=== PATIENT | female | born 1970 | race Caucasian/White ===

== ENCOUNTER 2022-12-24 09:23 | Outpatient (CLI) | payer OTHER, SELFPAY ==
--- NOTE | 2022-12-24 09:45 | CRLHL7_ITS ---
For Patients: As a result of the Cures Act, medical imaging exams and procedure reports are released immediately into your electronic medical record. You may view this report before your referring provider. If you have questions, please contact your health care provider. BILATERAL SCREENING MAMMOGRAM WITH COMPUTER-AIDED DETECTION AND TOMOSYNTHESIS TECHNIQUE: CC and MLO views were obtained. These mammographic images have been obtained using full-field digital technique. These mammographic images were interpreted with the benefit of computer-aided detection. Breast Tomosynthesis was used in this interpretation. COMPARISON FILM: 06/12/21, 07/15/19, 06/04/18. FINDINGS: There are scattered areas of fibroglandular density IMPRESSION: There is no radiographic evidence for malignancy. ASSESSMENT: BI-RADS Category 1: Negative RECOMMENDATION: Routine screening mammogram in 1 year. A lay language report of this examination will be provided to the patient. Jake Harper M.D. Diagnostic Radiologist [email or web address] / be/Dictated by: Jake Harper MD @ 12/24/2022 10:25:00 AM (Electronically Signed)
== END 2022-12-24 09:24 | disposition home or self-care (01) ==
LOC: MAMMO 09:24
PROVIDERS: PCP Family Medicine; Visit Provider Physician Assistant
DX: Z12.31 Encounter for screening mammogram for malignant neoplasm of breast (principal)
CPT/HCPCS: 77063; 77067

== ENCOUNTER 2023-01-24 07:37 | Outpatient (CLI) | payer OTHER, SELFPAY | END 2023-01-24 07:38 | disposition home or self-care (01) | PROVIDERS: PCP Family Medicine; Visit Provider Physician Assistant | DX: Z01.419 Encounter for gynecological examination (general) (routine) without abnormal findings (principal); R74.8 Abnormal levels of other serum enzymes; Z13.6 Encounter for screening for cardiovascular disorders; Z13.1 Encounter for screening for diabetes mellitus; Z13.29 Encounter for screening for other suspected endocrine disorder | CPT/HCPCS: 80061; 80076; 82947; 84443 ==

== ENCOUNTER 2023-01-29 16:14 | Outpatient (CLI) | payer OTHER, SELFPAY ==
--- NOTE | 2023-01-29 17:00 | CRLHL7_ITS ---
For Patients: As a result of the Century Cures Act, medical imaging exams and procedure reports are released immediately into your electronic medical record. You may view this report before your referring provider. If you have questions, please contact your health care provider. INDICATION: Elevated LFTs TECHNIQUE: Ultrasound abdomen limited. Sonographic images of the right upper quadrant were obtained using mathis-scale and color Doppler images. COMPARISON: None FINDINGS: Liver: Normal in size diffuse fatty infiltration. No masses. No intrahepatic biliary dilatation. Gallbladder: No stones or sludge. Normal wall thickness. No pericholecystic fluid. Common bile duct: 3.6 mm. Pancreas: Normal. The tail was not visualized. Right kidney: 8.7 cm. Normal echotexture and cortex. No masses, stones, or hydronephrosis. Vasculature: Proximal abdominal aorta and IVC are normal. IMPRESSION: Diffuse fatty infiltration of liver. Dictated by Jake Pearl MD @ 01/30/2023 11:12:43 AM (Electronically Signed)
== END 2023-01-29 16:15 | disposition home or self-care (01) ==
PROVIDERS: PCP Family Medicine; Visit Provider Physician Assistant
DX: R74.8 Abnormal levels of other serum enzymes (principal); K76.0 Fatty (change of) liver, not elsewhere classified
CPT/HCPCS: 76705

== ENCOUNTER 2023-02-15 19:38 | Outpatient (CLI) | payer OTHER, SELFPAY ==
--- NOTE | 2023-02-26 12:31 | W.PM.SLEEP ---
Sleep Study Details Details Interpreting Provider: Jody Date of Sleep Study: 02/15/23 Sleep Study Details: STUDY TYPE:? Home unattended ? BMI:? 34.5 ORDERING PROVIDER:? Ellie INDICATION:? Concerns about sleep apnea ? SLEEP SUMMARY:? 484.5 minutes monitor RESPIRATORY SUMMARY:? AHI 7.7, supine 12.4, left lateral 2.5, right lateral 5.9 1.3% of study oxygen below 90% Low oxygen 82% Snoring 1.5% PERIODIC LIMB MOVEMENTS OF SLEEP:? Not recorded during home study CARDIAC:? Range 46-93, mean 61.9 IMPRESSION:? Mild obstructive sleep apnea with supine position dependency RECOMMENDATION: If the patient is symptomatic treatment could consist of either AutoSet CPAP, dental appliance and/or airway expansion surgery.
== END 2023-02-15 19:39 | disposition home or self-care (01) ==
LOC: SLEEP 02-16 22:52
PROVIDERS: PCP Family Medicine; Visit Provider Physician Assistant
DX: G47.33 Obstructive sleep apnea (adult) (pediatric) (principal)
CPT/HCPCS: 95806

== ENCOUNTER 2023-04-08 07:09 | Outpatient (CLI) | payer OTHER, SELFPAY ==
--- NOTE | 2023-04-08 06:31 | W.ANESCHARGE ---
Anesthesia Charges Start Date/Time Anesthesia Start Date: 04/08/23 Anesthesia Start Time: 08:00 Stop Date/Time Anesthesia Stop Date: 04/08/23 Anesthesia Stop Time: 08:47
--- NOTE | 2023-04-08 06:31 | PM.ANHP ---
HPI - Pre-Anesthesia History of Present Illness Time Seen by Provider: 07:53 Date Seen: 04/08/23 Date of service: 04/08/23 Reason for visit: pre colonoscopy Source: patient Review of Systems Status of ROS Reports: 10 or more systems reviewed and unremarkable except as noted in History and below [facility] Surgical History (Updated 01/24/23 @ 11:14 by Bailee Argueta PA-C) History of eye surgery ?Z98.890 - Other specified postprocedural states (ICD-10) History of section (2008) ?Z98.891 - History of uterine scar from previous surgery (ICD-10) History of third molar tooth extraction ?K08.409 - Partial loss of teeth, unspecified cause, unspecified class (ICD-10) Family History (Updated 01/24/23 @ 11:13 by Bailee Argueta PA-C) Mother Depression Coronary artery disease, Onset Age: 71 Heart disease Glaucoma Paternal Grandmother Stomach cancer Maternal Grandfather Coronary artery disease Depression Glaucoma Maternal Grandmother Thyroid disease Osteoporosis Brother Depression Alcohol dependence Sister Macular degeneration Father Stroke Social History (Updated 01/24/23 @ 11:14 by Bailee Argueta PA-C) Narrative: . 2 children. [employer]. 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 Smoking Status: Never smoker Little interest or pleasure in doing things: not at all Feeling down, depressed, or hopeless: not at all Meds Home Medications and Allergies Home Medications Medication Instructions Recorded Confirmed Type albuterol sulfate 2.5 mg/3 mL 2.5 mg inhalation Q4-6H PRN 10/09/22 03/14/23 History (0.083 %) solution for nebulization albuterol sulfate 90 mcg/actuation 2 puff inhalation Q4-6H PRN 10/09/22 03/14/23 History aerosol inhaler cetirizine 10 mg tablet (Zyrtec) 10 mg PO QDAY PRN 01/24/23 03/14/23 History fluticasone furoate 27.5 2 spray intranasal QDAY 01/24/23 03/14/23 History mcg/actuation nasal spray,suspension (Flonase Sensimist) phenylephrine HCl 10 mg tablet 10 mg PO Q4-6H PRN 01/24/23 03/14/23 History (Sudafeneymar PE) Allergies Allergy/AdvReac Type Severity Reaction Status Date / Time minocycline Allergy Severe SOB Verified 03/14/23 14:13 Tetracyclines Allergy Severe Rash Verified 03/14/23 14:13 nickel Allergy Intermediate Palpitation Verified 03/14/23 14:13 s adhesive Allergy Mild Rash Verified 03/14/23 14:13 thimerosal Allergy Mild Verified 03/14/23 14:13 [From Merthiolate (thimerosal)] oats Allergy Unknown Verified 03/14/23 14:13 sulfa eye drops Allergy Unknown Uncoded 03/14/23 14:13 Exam Const Documenting provider has reviewed patient's vital signs: yes Common normals: no apparent distress, oriented x3, healthy appearing, alert and well nourished General appearance: cooperative and comfortable Orientation/consciousness: Yes awake HENMT Common normals: normocephalic Head and scalp: normocephalic Neck & C-Spine Common normals: full ROM Chest Chest: symmetrical chest wall rise Resp Common normals: normal respiratory effort, no retractions, no use of accessory muscles and clear to auscultation bilaterally Auscultation: clear to auscultation bilaterally Cardio Common normals: regular rate, regular rhythm, S1 normal heart sound, S2 normal heart sound and no murmurs Rate: regular rate Rhythm: regular rhythm Heart sounds: S1 normal and S2 normal Neuro Common normals: oriented x3 Sensorium/orientation: awake and alert Assessment and Plan Assessment and plan (1) Encounter for screening colonoscopy: Status: Acute Plan ok to proceed with sedation for colonoscopy
--- NOTE | 2023-04-08 08:51 | W.ANESCHARGE ---
Anesthesia Charges Start Date/Time Anesthesia Start Date: 04/08/23 Anesthesia Start Time: 08:00 Stop Date/Time Anesthesia Stop Date: 04/08/23 Anesthesia Stop Time: 08:47
== END 2023-04-08 07:10 | disposition home or self-care (01) ==
PROVIDERS: PCP Physician Assistant; Visit Provider Surgery
DX: Z12.11 Encounter for screening for malignant neoplasm of colon (principal); D49.0 Neoplasm of unspecified behavior of digestive system; K56.690 Other partial intestinal obstruction
CPT/HCPCS: 00811; 45380; 45381; 88305; 88341; 88342; J2704

== ENCOUNTER 2023-04-12 12:34 | Outpatient (CLI) | payer OTHER, SELFPAY ==
--- NOTE | 2023-04-12 13:00 | CRLHL7_ITS ---
For Patients: As a result of the Century Cures Act, medical imaging exams and procedure reports are released immediately into your electronic medical record. You may view this report before your referring provider. If you have questions, please contact your health care provider. CLINICAL INFORMATION: Colon cancer. TECHNIQUE: Contrast-enhanced CT of the chest, abdomen and pelvis was obtained. Coronal and sagittal reformatted images were obtained. Contrast: 98 mL of Isovue 370 intravenous contrast was injected uneventfully prior to image acquisition. Radiation Dose Estimate (Total Exam DLP): 1480 mGy-cm. COMPARISON: None. FINDINGS: Chest: Thyroid: Visualized portions are symmetric. Lungs: 8 mm left lower lobe pulmonary nodule (series 4, image 53). Heart/Pericardium: Unremarkable. Lymph Nodes: No significant axillary, mediastinal, or hilar lymphadenopathy. Abdomen/Pelvis: Liver: Noncirrhotic morphology. No suspicious enhancing lesions. Demonstrates diffusely decreased attenuation consistent with fatty infiltration. Gallbladder: Unremarkable. Spleen: Unremarkable. Adrenal glands: Unremarkable. Kidneys: Enhance symmetrically without hydronephrosis. Right extrarenal pelvis. Pancreas: Unremarkable. Lymph nodes: No retroperitoneal, mesenteric, inguinal, or pelvic adenopathy by CT criteria. Vascular: Abdominal aorta normal in caliber. Bowel: No bowel obstruction. Normal appendix in the right lower quadrant. Urinary bladder: Limited evaluation due to underdistention. No gross pathology. Reproductive structures: Intrauterine device is present. No abdominal/pelvis ascites or free intraperitoneal air. Musculoskeletal: Small fat containing umbilical hernia. Visualized osseous structures demonstrate diffuse degenerative changes. IMPRESSION: 1. 8 mm left lower lobe pulmonary nodule. Metastatic disease cannot be excluded given history of colon cancer. 2. No evidence of metastatic disease in the abdomen and pelvis. 3. Hepatic steatosis. Please note that all CT scans at this facility use dose modulation, iterative reconstruction, and/or weight-based dosing when appropriate to reduce radiation dose to as low as reasonably achievable. Dictated by Ron Dyson MD @ 04/14/2023 9:03:02 AM (Electronically Signed)
--- NOTE | 2023-04-12 13:45 | CRLHL7_ITS ---
For Patients: As a result of the Century Cures Act, medical imaging exams and procedure reports are released immediately into your electronic medical record. You may view this report before your referring provider. If you have questions, please contact your health care provider. INDICATION: Colon cancer. COMPARISON: CT chest, abdomen and pelvis April 12, 2023. TECHNIQUE: MRI of the pelvis without and with intravenous contrast; T1 and T2 weighted imaging; T2 haste imaging; diffusion weighted imaging; in and out of phase imaging. 15 cc Dotarem contrast was injected; postcontrast coronal, sagittal and axial projections of the pelvis FINDINGS: No abnormal pelvic lymphadenopathy. No mass lesions. No pathology in the adnexa on either side. Small nabothian cysts. There is a 1.1 x 0.8 cm possible fibroid left mid uterine body slice 13 series 14. IMPRESSION: 1. A 1.1 x 0.8 cm lesion left upper uterine body; rule out small uterine fibroid. 2. No adnexal pathology. 3. Negative MRI of the pelvis without and with intravenous contrast otherwise. Dictated by Brooke Trivedi MD @ 04/16/2023 7:09:56 PM (Electronically Signed)
== END 2023-04-12 12:35 | disposition home or self-care (01) ==
LOC: CT 12:34
PROVIDERS: PCP Physician Assistant; Visit Provider Surgery
DX: C18.9 Malignant neoplasm of colon, unspecified (principal); R91.8 Other nonspecific abnormal finding of lung field; K76.0 Fatty (change of) liver, not elsewhere classified
CPT/HCPCS: 71260; 72197; 74177; 82378; A9575; Q9967

== ENCOUNTER 2023-05-14 16:25 | Outpatient (CLI) | payer OTHER, SELFPAY | END 2023-05-14 16:26 | disposition home or self-care (01) | LOC: NFLDREF 16:25 | PROVIDERS: PCP Physician Assistant; Visit Provider Physician Assistant | DX: Z01.818 Encounter for other preprocedural examination (principal) | CPT/HCPCS: 80048 ==

== ENCOUNTER 2024-01-03 07:36 | Outpatient (CLI) | payer OTHER, SELFPAY ==
--- NOTE | 2024-01-03 07:45 | MM_ITS ---
Patient: GILMA BASS Facility:?[facility] Patient ID:?[id number] Site Patient ID:?[id number] Site :?1970 Study:?XRay-Breast Bilateral 3D-01/03/2024 8:08:17 AM Ordering Physician:Alexis Final Report: BILATERAL SCREENING MAMMOGRAM WITH COMPUTER-AIDED DETECTION AND TOMOSYNTHESIS TECHNIQUE: CC and MLO views were obtained. These mammographic images have been obtained using full-field digital technique. These mammographic images were interpreted with the benefit of computer-aided detection. Breast Tomosynthesis was used in this interpretation. COMPARISON FILM 12/24/22, 06/12/21, 07/15/2019. FINDINGS: There are scattered areas of fibroglandular density. IMPRESSION: There is no radiographic evidence for malignancy. ASSESSMENT: BI-RADS Category 1: Negative RECOMMENDATION: Routine screening mammogram in 1 year. A lay language report of this examination will be provided to the patient. Jake Harper M.D. Diagnostic Radiologist [email or web address] DSM/sp R& Transcribed: 5:47 p.m. SP/Dictated by: Jake Harper MD @ 01/03/2024 9:31:00 AM Signed by:?Jake Harper MD @01/03/2024 8:19:11 PM (Electronic Signature)
== END 2024-01-03 07:37 | disposition home or self-care (01) ==
LOC: MAMMO 07:38
PROVIDERS: PCP Physician Assistant; Visit Provider Physician Assistant
DX: Z12.31 Encounter for screening mammogram for malignant neoplasm of breast (principal)
CPT/HCPCS: 77063; 77067

== ENCOUNTER 2024-01-29 18:55 | Outpatient (REF) | payer OTHER, SELFPAY | END 2024-01-29 18:56 | disposition home or self-care (01) | LOC: NPINS 18:55 | PROVIDERS: PCP Physician Assistant; Visit Provider Student in an Organized Health Care Education/Training Program | DX: C18.9 Malignant neoplasm of colon, unspecified (principal) | CPT/HCPCS: 82378 ==

== ENCOUNTER 2024-02-12 01:28 | Emergency (ER) | payer OTHER, SELFPAY ==
[2024-02-12 01:37] VITALS: BP 183/83; PULSE 75; RESP 18; TEMP 37.3; O2SAT 99; BMI 34.3
--- NOTE | 2024-02-12 02:11 | ED_ITS ---
HPI - General Adult General Time Seen by Provider: 02:11 Date Seen: 02/12/24 Chief complaint: Eye Problems Stated complaint: Infected/Pain eye R Time Seen by Provider: 02/12/24 01:34 Source: patient and RN notes reviewed Mode of arrival: ambulatory Limitations: no limitations History of Present Illness HPI narrative: This 54-year-old female is coming in with worsening right periorbital/eye pain. She has a known blocked right nasolacrimal duct. She previously had the left 1 repaired. She was placed on tobramycin and steroid drops but the right duct continued to worsen. She was having increasing pain, redness and swelling inferiorly below the eye. She has taken 4 doses of Augmentin. This was prescribed in urgent care yesterday. The pain has been worsening, tried two left over 5 mg oxycodone without any relief. There are no visual changes. The pain is below the eye, around the eye, above the eye in the medial frontal area. No fever. Her past medical history in her chart is reviewed, and in the inner room interval history, she has been diagnosed with colon cancer, surgically removed. She states she is recovered from this. Related Data Home Medications Medication Instructions Recorded Confirmed albuterol sulfate 2.5 mg/3 mL 2.5 mg inhalation Q4-6H PRN 10/09/22 02/10/24 (0.083 %) solution for nebulization albuterol sulfate 90 mcg/actuation 2 puff inhalation Q4-6H PRN 10/09/22 02/10/24 aerosol inhaler cetirizine 10 mg tablet (Zyrtec) 10 mg PO QDAY PRN 01/24/23 02/10/24 fluticasone furoate 27.5 2 spray intranasal QDAY 01/24/23 02/10/24 mcg/actuation nasal spray,suspension (Flonase Sensimist) levonorgestrel 21 mcg/24 hours (8 1 device intrauterine ONCE 05/14/23 02/10/24 yrs) 52 mg intrauterine device (Mirena) tobramycin 0.3 %-dexamethasone 0.1 1 drp ophthalmic (eye) QID 02/10/24 02/10/24 % eye drops,suspension Previous Rx's Medication Instructions Recorded amoxicillin 875 mg-potassium 1 tab PO BID 7 days #14 tabs 02/10/24 clavulanate 125 mg tablet fluconazole 150 mg tablet 150 mg PO Q3D 2 doses #2 tabs 02/10/24 Allergies Allergy/AdvReac Type Severity Reaction Status Date / Time minocycline Allergy Severe SOB Verified 02/10/24 10:11 Tetracyclines Allergy Severe Rash Verified 02/10/24 10:11 nickel Allergy Intermediate Palpitation Verified 02/10/24 10:11 s adhesive Allergy Mild Rash Verified 02/10/24 10:11 thimerosal Allergy Mild Verified 02/10/24 10:11 [From Merthiolate (thimerosal)] oats Allergy Unknown Verified 02/10/24 10:11 sulfa eye drops Allergy Unknown Uncoded 02/10/24 10:11 Review of Systems Status of ROS: Reports: 6 or more systems reviewed and unremarkable except as noted in History and below [facility] Surgical History History of eye surgery ?Z98.890 - Other specified postprocedural states (ICD-10) History of section (2008) ?Z98.891 - History of uterine scar from previous surgery (ICD-10) History of third molar tooth extraction ?K08.409 - Partial loss of teeth, unspecified cause, unspecified class (ICD- 10) Family History Mother Depression Coronary artery disease, Onset Age: 71 Heart disease Glaucoma Paternal Grandmother Stomach cancer Maternal Grandfather Coronary artery disease Depression Glaucoma Maternal Grandmother Thyroid disease Osteoporosis Brother Depression Alcohol dependence Sister Macular degeneration Father Stroke 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 Smoking Status: Never smoker Non-prescribed substance use: denies use Little interest or pleasure in doing things: not at all Feeling down, depressed, or hopeless: not at all Exam Const: Vital Signs, click to edit/add: Vital Signs - 24 hr 02/12/24 01:37 Temperature 99.1 F Pulse Rate [Pulse Oximeter] 75 Respiratory Rate 18 Blood Pressure [Ri ght Upper Arm] 183/83 H Pulse Oximetry 99 Oxygen Delivery Me thod Room Air This 54-year-old female is alert, interactive, seems to be uncomfortable. I do know her from working with her, she does not seem comfortable. Pupils are equal round, sclera clear, extraocular muscles intact, no evidence of any entrapment. She has some mild erythematous swelling that goes along the medial eye inferiorly. She is tender there but I really do not feel any palpable mass. The lower right eyelid really itself is not all that red or inflamed. Seems to be a little bit more inferiorly. She has no circumferential periorbital swelling or erythema. CV regular rate and rhythm, no murmur. Lungs are clear. Speech is normal. Documenting provider has reviewed patient's vital signs: yes Course Course ED Course: Patient will have facial CT. She is obviously concerned about orbital cellulitis. We will definitely get the CT with IV contrast. Will get some baseline labs. We will try some Toradol, can escalate to IV narcotic pain management if need be. She understands that I can do nothing about a blocked nasolacrimal duct. We can look at the imaging to ensure no orbital cellulitis, treat pain. Ultimately if this is just complications of pain from a blocked or infected nasolacrimal duct, may need to see an automobile sales consultant that has training for this more urgently. Reevaluation(s) Time of Reevaluation #1: 03:20 Reevaluation #1: Reviewed that the CT is showing only the localized issue with the nasolacrimal duct. She was provided a copy of the CT. Her labs are reassuring. Just minimal elevation in the C reactive protein at 2. She has no fever. She does feel better with the Toradol. She still has more oxycodone at home. We have discussed having her add in Toradol to the regimen, will give her prescription from [facility]. Vital Signs Vital signs: Initial Vital Signs Temperature 99.1 F 02/12/24 01:37 Temperature Source Temporal Artery Scan 02/12/24 01:37 Pulse Rate 75 02/12/24 01:37 Respiratory Rate 18 02/12/24 01:37 Blood Pressure 183/83 H 02/12/24 01:37 Blood Pressure Mean 116 H 02/12/24 01:37 Blood Pressure Position Supine 02/12/24 01:37 Pulse Oximetry 99 02/12/24 01:37 Oxygen Delivery Method Room Air 02/12/24 01:37 Vital Signs Temperature 99.1 F 02/12/24 01:37 Pulse Rate 75 02/12/24 01:37 Respiratory Rate 18 02/12/24 01:37 Blood Pressure 183/83 H 02/12/24 01:37 Pulse Oximetry 99 02/12/24 01:37 Oxygen Delivery Method Room Air 02/12/24 01:37 Temperature 99.1 F 02/12/24 01:37 Pulse Rate 75 02/12/24 01:37 Respiratory Rate 18 02/12/24 01:37 Blood Pressure 183/83 H 02/12/24 01:37 Pulse Oximetry 99 02/12/24 01:37 Oxygen Delivery Method Room Air 02/12/24 01:37 Medications Administered Medications: Generic Name Dose Route Start Last Admin Trade Name Freq PRN Reason Stop Dose Admin Ketorolac Tromethamine 15 mg 02/12/24 02:21 02/12/24 02:50 Ketorolac 15 Mg/Ml Inj IVP 02/12/24 02:22 15 mg ONCE ONE Administration Medical Decision Making Lab Data Lab results reviewed: Yes I reviewed the patient's lab results Labs: Lab Results 02/12/24 Range/Units 02:35 WBC 9.68 (4.50-11.00) K/uL RBC 4.45 (4.00-5.20) m/uL Hgb 14.8 (12.0-16.0) gm/dL Hct 43.0 (33.0-51.0) % MCV 97 (80-100) fL MCH 33 (26-34) pg MCHC 34 (32-36) gm/dL RDW Coeff of Kimberly 12.3 (11.5-15.5) % Plt Count 266 (140-440) K/uL Neut % (Auto) 72.1 H (42.0-72.0) % Lymph % (Auto) 19.0 L (20-44) % [place] % (Auto) 7.2 (0.0-11.0) % Eos % (Auto) 1.3 (0.0-7.0) % Baso % (Auto) 0.2 (0.0-3.0) % Neut # (Auto) 7.00 (1.7-7.0) K/uL Lymph # (Auto) 1.80 (0.90-2.90) K/uL [place] # (Auto) 0.70 (0.00-0.90) K/UL Eos # (Auto) 0.13 (0.00-0.50) K/uL Baso # (Auto) 0.02 (0.00-0.30) K/uL Abs Immat Gran (auto) 0.02 (0.00-0.30) K/uL Imm/Tot Granulo (auto) 0.2 % Sodium 140 (135-149) mmol/L Potassium 4.2 (3.6-5.1) mmol/L Chloride 107 (96-114) mmol/L Carbon Dioxide 28 (20-32) mmol/L Anion Gap 5 L (7-15) mEq/L BUN 15 (7-30) mg/dL Creatinine 0.6 (0.5-1.5) mg/dL Estimated Creat Clear 90.41 Estimated GFR 105 ml/min Glucose 111 (60-115) mg/dL Lactate 1.1 (0.5-1.9) mmol/L Calcium 9.4 (8.4-10.6) mg/dL C-Reactive Protein 2.0 H (0.5-1.0) mg/dL Imaging Data CT- Other: Attestation: I have reviewed the pertinent imaging results. Radiologist's impression: Patient: GILMA BASS Facility:?[facility] Patient ID:?[id number] Site Patient ID:?[id number]. Site :?1970 Study:?CT-Facial W/ISOVUE 370 98CC-02/12/2024 3:03:09 AM Ordering Physician:GIOVANNY Final Report: INDICATION: Right eye pain. TECHNIQUE: CT maxillofacial with 98 cc Isovue 370 IV contrast. COMPARISON: None. FINDINGS: Orbits and globes: Globes are intact. Low-density structure obstructs the right nasolacrimal duct, likely representing a dacryocystocele. There is surrounding enhancement, likely representing superimposed dacryocystitis. Sinuses: Mild mucosal thickening of the maxillary sinuses. Soft tissues: Unremarkable. Facial bones: No fractures or bone lesions. Specifically the nasal bones, temporomandibular joints, maxilla and mandible appear intact. IMPRESSION: Right dacryocystocele with superimposed dacryocystitis. Please note that all CT scans at this facility use dose modulation, iterative reconstruction, and/or weight-based dosing when appropriate to reduce radiation dose to as low as reasonably achievable. Dictated by Gordon Spivey MD @ 02/12/2024 3:13:09 AM (Electronic Signature) Discharge Plan Discharge Clinical Impression: Acute dacryocystitis of right lacrimal passage Patient Disposition: Home, Self-Care Condition: Stable Instructions: Blocked Tear Duct (ED) Additional Instructions: I would continue with the eyedrops that were prescribed to you by your eye doctor. Continue with the oral Augmentin. Warm compresses to the area. We will provide a prescription of Toradol oral, do not use ibuprofen while on the Toradol. Once the Toradol is done, can go back to ibuprofen or NSAID of choice. Can supplement with Tylenol 1000 mg 3 times a day. You can add in the oxyc odone you have at home for more severe pain, follow bottle dosing instructions. Please contact your eye clinic tomorrow, they may need to actually call their referring facility and see if they can speak with someone to get you in quicker. If you are worsening, may need to be seen at a facility where there is ability for you to see Ophthalmology. Activity Level: Activity as Tolerated Prescriptions: No Action albuterol sulfate 2.5 mg /3 mL (0.083 %) solution for nebulization 2.5 mg inhalation Q4-6H PRN albuterol sulfate 90 mcg/actuation HFA aerosol inhaler 2 puff inhalation Q4-6H PRN Mirena 21 mcg/24 hours (8 yrs) 52 mg intrauterine device 1 device intrauterine ONCE Rx Instructions: as a single dose cetirizine [Zyrtec] 10 mg tablet 10 mg PO QDAY PRN Flonase Sensimist 27.5 mcg/actuation spray,suspension 2 spray intranasal QDAY Rx Instructions: into each nostril tobramycin-dexamethasone 0.3-0.1 % drops,suspension 1 drp ophthalmic (eye) QID amoxicillin-pot clavulanate 875-125 mg tablet 1 tab PO BID 7 Days Qty: 14 0RF fluconazole 150 mg tablet 150 mg PO Q3D Qty: 2 0RF Rx Instructions: may repeat second dose 72 hrs after first dose if symptoms persist Follow Up/Referrals: Fitzloff,Bailee, PA-C [Primary Care Provider] - Stand Alone Forms: [employer] Info Instructions
--- NOTE | 2024-02-12 02:20 | CT_ITS ---
Patient: GILMA BASS Facility:?[facility] Patient ID:?[id number] Site Patient ID:?[id number]. Site :?1970 Study:?CT-Facial W/ISOVUE 370 98CC-02/12/2024 3:03:09 AM Ordering Physician:GIOVANNY Final Report: INDICATION: Right eye pain. TECHNIQUE: CT maxillofacial with 98 cc Isovue 370 IV contrast. COMPARISON: None. FINDINGS: Orbits and globes: Globes are intact. Low-density structure obstructs the right nasolacrimal duct, likely representing a dacryocystocele. There is surrounding enhancement, likely representing superimposed dacryocystitis. Sinuses: Mild mucosal thickening of the maxillary sinuses. Soft tissues: Unremarkable. Facial bones: No fractures or bone lesions. Specifically the nasal bones, temporomandibular joints, maxilla and mandible appear intact. IMPRESSION: Right dacryocystocele with superimposed dacryocystitis. Please note that all CT scans at this facility use dose modulation, iterative reconstruction, and/or weight-based dosing when appropriate to reduce radiation dose to as low as reasonably achievable. Dictated by Gordon Spivey MD @ 02/12/2024 3:13:09 AM Signed by:?Gordon Spivey MD @02/12/2024 3:13:09 AM (Electronic Signature)
[2024-02-12 02:39] LABS: Lactate* 1.1 mmol/L (0.5-1.9)
[2024-02-12 02:42] LABS: Basophils Absolute Auto 0.02 K/uL (0.00-0.30); Basophils Percent Auto 0.2 % (0.0-3.0); Eosinophils Absolute Auto 0.13 K/uL (0.00-0.50); Eosinophils Percent Auto 1.3 % (0.0-7.0); Hemoglobin* 14.8 gm/dL (12.0-16.0); Immature Granulocytes Abs Auto 0.02 K/uL (0.00-0.30); Immature Granulocytes Pct Auto 0.2 %; Mean Corpuscular HGB Conc 34 gm/dL (32-36); Mean Corpuscular Hemoglobin 33 pg (26-34); Mean Corpuscular Volume 97 fL (80-100); Monocytes Percent Auto 7.2 % (0.0-11.0); Neutrophils Percent Auto 72.1 % (42.0-72.0); Platelet Count* 266 K/uL (140-440); RDW Coefficient of Variation % 12.3 % (11.5-15.5); Red Blood Count 4.45 m/uL (4.00-5.20); White Blood Count* 9.68 K/uL (4.50-11.00)
[2024-02-12 02:46] LABS: Slide Review Reflex No
[2024-02-12] MEDS: KETOROLAC 15 MG/ML inj IVP (02:50)
[2024-02-12 02:55] LABS: Chloride* 107 mmol/L (96-114); Potassium* 4.2 mmol/L (3.6-5.1); Sodium* 140 mmol/L (135-149)
[2024-02-12 02:58] LABS: Creatinine* 0.6 mg/dL (0.5-1.5); Est. Creatinine Clearance* 90.41; Estimated Glomerular Filt Rate 105 ml/min
[2024-02-12 02:59] LABS: Anion Gap 5 mEq/L (7-15); Blood Urea Nitrogen* 15 mg/dL (7-30); Calcium* 9.4 mg/dL (8.4-10.6); Carbon Dioxide* 28 mmol/L (20-32); Glucose* 111 mg/dL (60-115)
[2024-02-12 03:22] VITALS: BP 139/67; PULSE 69; RESP 16; O2SAT 97
== END 2024-02-12 03:41 | disposition home or self-care (01) ==
PROVIDERS: Emergency Provider Family Medicine; PCP Physician Assistant
DX: H04.321 Acute dacryocystitis of right lacrimal passage (principal)
CPT/HCPCS: 36415; 70487; 80048; 83605; 85025; 86140; 96374; 99284; J1885; Q9967

== ENCOUNTER 2024-03-15 19:22 | Inpatient (IN) | payer OTHER, SELFPAY ==
[2024-03-15 19:26] VITALS: BP 182/101; PULSE 99; RESP 16; TEMP 37.6; O2SAT 97; BMI 34.3
--- NOTE | 2024-03-15 19:42 | CRLHL7_ITS ---
For Patients: As a result of the Century Cures Act, medical imaging exams and procedure reports are released immediately into your electronic medical record. You may view this report before your referring provider. If you have questions, please contact your health care provider. Indication: pain and swelling RIGHT side of face hx of left tearduct reconstruction Technique: CT orbits with contrast. Helical axial sections were obtained through the orbits following administration of 98 cc Isovue 370 intravenous contrast material with multiplanar reformats Comparison: 02/12/2024 Findings: No fracture is demonstrated in the facial skeleton or mandible. Overall decreased size of rim enhancing fluid collection along the right nasolacrimal duct. Similar diffuse region of edema and fat attenuation of the right medial extraconal fat and extending through the septum to the right periorbital soft tissues with mildly increased inflammation of the right inferior orbital and right facial soft tissues concerning for combined orbital and preseptal/facial cellulitis. There is no evidence for penetrating injury to the ocular globes. The lenses are situated in their normally expected anterior locations. No radiodense or metallic foreign body is demonstrated. Unremarkable left orbit and preseptal soft tissues. Leftward deviation of the nasal septum. Mild mucosal thickening in the right maxillary sinus. The left maxillary sinus, bilateral sphenoid sinuses are clear. Mild mucosal thickening in the right anterior ethmoid air cells. The right and left frontal sinuses are clear. The visualized portions of the brain are normal in appearance. Impression: 1. Overall decreased size of rim enhancing fluid collection along the right nasolacrimal duct. Similar diffuse region of edema and fat attenuation of the right medial extraconal fat and extending through the septum to the right periorbital soft tissues. Increased soft tissue inflammation of the right periorbital soft tissues, particularly along the right lateral periorbital soft tissues and right face. Findings are concerning for worsening preseptal cellulitis and stable orbital cellulitis in the setting of dacryocystitis. 2. Unremarkable left orbit. 3. Minimal mucosal thickening in the right anterior ethmoid air cells. Please note that all CT scans at this facility use dose modulation, iterative reconstruction, and/or weight-based dosing when appropriate to reduce radiation dose to as low as reasonably achievable. Dictated by Jake Espinosa MD @ 03/15/2024 9:20:53 PM (Electronically Signed)
--- OUTSIDE RECORDS SUMMARY | 2024-03-15 19:53 | XMS_ITS | Referral Summary ---
Author Organization [facility] Address [address] [place] [address]. [place] [address] Care Team Providers Care Vp Account Director Name Role Phone Gerardjanuary Primary Care Provider [phone] Encounters Date Type Department Care Team Description 2024 Orders Only [facility] [address] [facility] [place] [address] Deepthi Sanders MD Colon cancer (H) (Primary Dx) from Last 3 Months Allergies Active Allergy Reactions Criticality Noted Date Comments Adhesive Tape 05/01/2023 Minocycline Palpitations Low 07/01/2007 SOB also Nickel Rash Low 06/06/2023 Oat GI Disturbance 05/01/2023 Sulfa Antibiotics 07/01/2007 eye drops only Thimerosal (Thiomersal) 12/12/2009 Medications Medication Sig Dispensed Refills Start Date End Date Status levonorgestrel (MIRENA) 52 MG (20 mcg/day) IUD by Intrauterine route once Active cetirizine (ZYRTEC) 10 MG tablet Take 10 mg by mouth daily Active albuterol (PROAIR HFA/PROVENTIL HFA/VENTOLIN HFA) 108 (90 Base) MCG/ACT inhaler Inhale 2 puffs into the lungs every 6 hours as needed 09/19/2022 Active fluticasone (FLONASE) 50 MCG/ACT nasal spray [place] 1 spray into both nostrils daily Active enoxaparin ANTICOAGULANT (LOVENOX) 40 MG/0.4ML syringeIndications:C olorectal cancer (H) Inject 0.4 mLs (40 mg) Subcutaneous every 24 hours 26 mL 06/09/2023 Active oxyCODONE (ROXICODONE) 5 MG tabletIndications:Co lorectal cancer (H) Take 1 tablet (5 mg) by mouth every 6 hours as needed for moderate pain 10 tablet 06/08/2023 Active Active Problems Problem Noted Date Diagnosed Date Colorectal cancer 06/06/2023 Social History Tobacco Use Types Packs/Day Years Used Date Smoking Tobacco: Never Smokeless Tobacco: Never Alcohol Use Standard Drinks/Week Comments Yes 0 (1 standard drink = 0.6 oz pur e alcohol) rare Adolescent Education Answer Date Record ed Getting School Help Needed Not on file 07/06 Sex and Gender Information Value Date Recorded Sex Assigned at Not on file Gender Identity Not on file Sexual Orientation Not on file Last Filed Vital Signs Vital Sign Reading Time Taken Comments Blood Pressure 118/64 06/08/2023 7:23 AM CDT Pulse 74 06/08/2023 7:23 AM CDT Temperature 37 ??C (98.6 ??F) 06/08/2023 7:23 AM CDT Respiratory Rate 16 06/08/2023 7:23 AM CDT Oxygen Saturation 96% 06/08/2023 7:23 AM CDT Inhaled Oxygen Concentration - - Weight 90 kg (198 lb 8 oz) 06/06/2023 6:40 AM CD T Height 165.1 cm (5' 5) 05/29/2023 3:00 PM CDT Body Mass Index 33.03 05/29/2023 3:00 PM CDT Plan of Treatment Upcoming Encounters Date Type Department Care Team (Late st Contact Info) Description 05/01/2024 9:40 AM CDT Appointment [facility] [address] [place] [address] Deepthi Sanders MD COLON RECTAL SURGERY [address] [id number] Procedures Procedure Name Priority Date/Time Associated Diagnosis Comments GLUCOSE BY METER Routine 06/08/2023 7:48 AM CDT from Last 3 Months or Most Recently Relevant to Health Maintenance Results * Glucose by meter (06/08/2023 7:48 AM CDT) GLUCOSE BY METER POCT 91 70 - 99 mg/dL 06/08/2023 7:55 AM CDT [facility] LAB[facility]AT[facility] POC Blood, Capillary BLOOD SPECIMEN / Unknown 06/08/2023 7:48 AM CDT 06/08/2023 7:55 AM CDT Deepthi Sanders MD LAB - BEAKER POC T RH LABORATORY POC [facility] [address] Lab (1st floor, no room number) [place] [address], [facility] [phone] from Last 3 Months or Most Recently Relevant to Health Maintenance Advance Directives For more information, please contact: [phone] * Full Code (Latest Code Status on File) Date Activated Date Inactivated Comments 06/06/2023 2:05 PM 06/08/2023 5:12 PM All basic an d advanced life-sustaining interventions are performed as appropriate Question Answer Comments Code status determined by: Discussion with filomena nt/ legal decision maker Care Teams Vp Account Director Relationship Specialty Start Date End Date Gerardjanuary [place] [id number] [place] [address] PCP - General Physician Warehouse Selector 04/23/23
--- OUTSIDE RECORDS SUMMARY | 2024-03-15 19:53 | XMS_ITS | Clinical Summary ---
Author Organization [facility] Address [address] [place] [address] Care Team Providers Care Gold Blower Name Role Phone Gerardjanuary Primary Care Provider Allergies Active Allergy Reactions Criticality Noted Date [...] Active fluticasone (FLONASE) 50 MCG/ACT nasal spray [place] 1 spray into both nostrils daily Active [...] Noted Date Diagnosed Date Colorectal cancer 06/06/2023 Encounters Date Type Department Care Team Description 2024 Orders Only [facility] Laboratory [address] [phone] Deepthi Sanders MD Colon cancer (H) (Primary Dx) from Last 3 Months Social History Tobacco Use Types Packs/Day Years [...] Info) Description 05/01/2024 9:40 AM CDT Appointment [facility] Imaging [address] [place] [address] Deepthi Sanders MD COLON RECTAL SURGERY [address] [place] [phone] Health Maintenance Due Date Last Done Comments ADVANCE CARE PLANNING 1968 ANNUAL REVIEW OF HM ORDERS 1968 CT COLONOGRAPHY 1968 FIT 1968 FLEX SIG 1968 MAMMO SCREENING 1968 YEARLY PREVENTIVE VISIT 1968 sDNA (Cologuard) 1968 COLONOSCOPY 01/28/1978 COLORECTAL CANCER SCREENING 01/28/1978 HIV SCREENING 01/28/1983 HEPATITIS C SCREENING 01/28/1986 HEPATITIS B IMMUNIZATION (1 of 3 - 19+ 3-dose series) 01/28/1987 PAP 01/28/1989 LIPID 2008 ZOSTER IMMUNIZATION (1 of 2) 01/28/2018 COVID-19 Vaccine (3 - season) 2023 06/27/2021, 06/06/2021 PHQ-2 (once per calendar year) 2023 INFLUENZA VACCINE (Season Ended) 2024 07/11/2022, 07/15/2019, 07/16/2018, Additional history exists GLUCOSE 06/08/2026 06/08/2023, 05/15, 06/07/2023, Additional history exists DTAP/TDAP/TD IMMUNIZATION (4 - Td or Tdap) 04/18/2031 04/18/2021, 05/19/2009, 10/14/1998, Additional history exists HPV IMMUNIZATION Aged Out No longer e ligible based on patient's age to complete this topic IPV IMMUNIZATION Aged Out No longer e ligible based on patient's age to complete this topic MENINGITIS IMMUNIZATION Aged Out No l onger eligible based on patient's age to complete this topic Pneumococcal Vaccine: Pediatrics (0 to 5 Years) and At-Risk Patients (6 to 64 Years) Aged Out No longer eligible based on patient's age to complete this topic RSV MONOCLONAL ANTIBODY Aged Out No l onger eligible based on patient's age to complete this topic Procedures Procedure Name Priority Date/Time Associated Diagnosis [...] LAB - BEAKER POC T RH LABORATORY [facility] Acute Care Lab [address] Lab (1st floor, no room number) [place] [address], [place] [phone] from Last 3 Months or Most Recently Relevant to Health Maintenance Advance Directives For more information, please contact: [phone] * Full Code (Latest Code Status on File) Date Activated Date Inactivated Comments 06/06/2023 2:05 PM 06/08/2023 5:12 PM All basic an d advanced life-sustaining interventions are performed as appropriate Question Answer Comments Code status determined by: Discussion with filomena valdes/ legal decision maker Care Teams Gold Blower Relationship Specialty Start Date End Date January [facility] [place] [address] [place] [place] [address] PCP - General Physician Residential Director 04/23/23
--- OUTSIDE RECORDS SUMMARY | 2024-03-15 19:53 | XMS_ITS | Encounter Summary ---
Author Organization [place] Address [address] [place] [address]. [place] [address] Care Team Providers Care Wood Patternmaker Name Role Phone Gerardjanuary Primary Care Provider [phone] Encounter Details Date Type Department Care Team (Late st Contact Info) Description 2024 Orders Only [facility] Laboratory [address] [phone] Deepthi Sanders MD COLON RECTAL SURGERY [address] [phone] Colon cancer (H) (Primary Dx) Social History Tobacco Use Types Packs/Day Years [...] on file Sexual Orientation Not on file documented as of this encounter Plan of Treatment Upcoming Encounters Date Type Department Care Team (Late st Contact Info) Description 05/01/2024 9:40 AM CDT Appointment [facility] Imaging [address] [place] [address] [place] [phone] Deepthi Sanders MD COLON RECTAL SURGERY [address] [phone] Scheduled Orders Name Type Priority Associated Diagnoses Orde r Schedule [facility] Lab Routine Colon cancer (H) Expected: 2024, Expires: documented as of this encounter Visit Diagnoses Diagnosis Colon cancer (H)- Primary Malignant neoplasm of colon, unspecified site documented in this encounter Care Teams Wood Patternmaker Relationship Specialty Start Date End Date Kevinjanuary [address] [place] [address] PCP - General Physician Ergonomic Specialist 04/23/23 documented as of this encounter
--- OUTSIDE RECORDS SUMMARY | 2024-03-15 19:53 | XMS_ITS | Clinical Summary ---
Author Organization [facility] Address [place], [place] [address] Care Team Providers Care Unionmelt Operator Name Role Phone Unavailable Primary Care Provider Unavailabl e Allergies Active Allergy Reactions Criticality Noted Date Comments Minocycline Palpitations 07/01/2007 SOB also Sulfa (Sulfonamide Antibiotics) 06/14 eye drops only Thimerosal 12/12/2009 Medications No known medications Active Problems Problem Noted Date Diagnosed Date Hallux rigidus 07/15/2007 Polycystic ovaries 07/01/2007 Contact dermatitis and other eczema, due to unspecified cause 07/01/2007 Allergic rhinitis, cause unspecified 07/01/2007 Resolved Problems Problem Noted Date Diagnosed Date Resolved Date Unspecified high-risk 06/18/2008 06/15/2010 Immunizations Name Administration Dates Next Due AMB Influenza, IIV4 PF (=>6 mos Flulaval,Fluzone Fluarix)(Flu Clinic Only) 07/30/2014 Hepatitis A (Adult) 11/07/2011 Influenza, IIV3 (Age >=3 years) 07/10/2013,09/08,07/19/2009 MMR 04/17/1990 Td (Age >=7 Years) 10/14/1998,04/17/1990 Tdap 05/19/2009 Family History Medical History Relation Name Comments Other Brother 2 with Hx: Etoh ism Good Health Father b 1936 Heart Disease Maternal Grandfather [place] Psychiatric illness Maternal Grandfather bipolar Arthritis Maternal Grandmother rheumat oid Other Maternal Grandmother hypothy roid Heart Disease Mother stents Hypertension Mother b 1941 Psychiatric illness Mother depressi on Cancer-colon Paternal Grandmother Hypertension Paternal Uncle d 40 yo [place] Other Sister eye disease Cancer-breast No Family History Relation Name Status Comments Brother Father Maternal Grandfather Maternal Grandmother Mother Paternal Grandmother Paternal Uncle Sister Social History Tobacco Use Types Packs/Day Years Used Date Smoking Tobacco: Never Smokeless Tobacco: Never Tobacco Cessation:Counseling Given: Yes Alcohol Use Standard Drinks/Week Comments Yes 0.8 (1 standard drink = 0.6 oz p ure alcohol) occasionall Sex and Gender Information Value Date Recorded Sex Assigned at Not on file Gender Identity Not on file Sexual Orientation Not on file Obstetrics History Para Term AB IAB SAB Ectopic Multiple Livin g Live Births 2 2 2 0 0 0 0 0 2 Date Outcome GA Total Labor Labor/2nd/3rd Weight Sex Delivery Anes PTL Blanche A1 A5 Name Cl in 01/24 Term 41w 0d 24h 00m/ 3.54 kg (7 lb 13 oz) M Vag 12/17 Term 40w 2d 3.88 kg (8 lb 9 oz) M 8 9 luke Last Filed Vital Signs Vital Sign Reading Time Taken Comments Blood Pressure 136/78 07/02/2017 1:00 PM CDT Pulse 87 07/02/2017 1:00 PM CDT Temperature 36.7 ??C (98 ??F) 04/26/2016 4:39 PM CDT Respiratory Rate 27 02/09/2009 8:58 AM CDT Oxygen Saturation 97% 07/02/2017 1:00 PM CDT Inhaled Oxygen Concentration - - Weight 88.6 kg (195 lb 6.4 oz) 07/02/2017 1:31 P M CDT Height 166 cm (5' 5.35) 04/26/2016 4:39 PM CDT shoes on Body Mass Index 32.16 04/26/2016 4:39 PM CDT Plan of Treatment Health Maintenance Due Date Last Done Comments Colonoscopy through age 75 01/28/2013 Depression screening for age 12+ 01/16/2017 01/17/2016 BMI (ht and wt on same day) for age 18+ 04/26/2017 04/26/2016, 01/17/2016 Zoster (shingles) series for age 50+ (1 of 2) 01/28/2018 Tetanus booster 05/19/2019 05/19/2009, 01/10/1998, 04/17/1990 Mammogram for age 45-75 07/15/2020 07/15/20 19, 06/04/2018, 04/02/2017, Additional history exists Lipids for age 45-75 01/16/2021 01/17/2016, 06/16/20 10 COVID-19 vaccine series (2022- season) 2023 Influenza for age 50-64 06/14/2024 07/30/20 14, 07/10/2013, 09/08/2012, Additional history exists Pap test for age 21-65 01/24/2026 , 01/24/2023, 07/01/2018, Additional history exists Tdap Completed 05/19/2009 HIV for age 15-65 Completed 04/01/2015, , 05/06/2008 Hepatitis C screening for age 18-79 Completed 04/01/2015, 11/22/2014 Pneumococcal series for age 6-64 Aged Out No longer eligible based on patient's age to complete this topic Procedures Procedure Name Priority Date/Time Associated Diagnosis Comments HPV THIN PREP Routine 01/24/2023 12:00 PM CDT SCAN-MAMMOGRAPHY REPORT 07/15/2019 12:00 AM CDT LIPID PANEL W REFLEX MEASURED LDL Routine 01/17/2016 10:57 AM CDT Polycystic ovaries ANTI HIV 1/2 Routine 04/01/2015 9:48 AM CDT Exposure ANTI HCV Routine 04/01/2015 9:48 AM CDT Exposure from Last 3 Months or Most Recently Relevant to Health Maintenance Results * HPV HIGH RISK (01/24/2023 12:00 PM CDT) TYPE 16 Negative Negative 01/28/2023 1:45 PM CDT [facility] TRAL LABORATORY TYPE 18 Negative Negative 01/28/2023 1:45 PM CDT [facility] TRAL LABORATORY OTHER HIGH RISK TYPES Negative Negative 01/28/2023 1:45 PM CDT [facility] TRAL LABORATORY Other (Cervical) 01/24/2023 12:00 PM CDT 01/25/2023 10:17 AM CDT Narrative [facility] - 01/28/2023 1:45 PM CDT HPV types 16, 18, 31, 33, 35, 39, 45, 51, 52, 56, 58, 59, 66 and 68 DNA were undetectable or below the pre-set threshold. Methodology: Gwyn Theresa 4800 HPV Test Bailee Ellie ABDALLA [facility]OLOG[facility] [address] [place] [address], [place] * SCAN-MAMMOGRAPHY REPORT (07/15/2019 12:00 AM CDT) Anatomical Region Laterality Modality Other Scanner OTHER * LIPID PANEL W REFLEX MEASURED LDL (01/17/2016 10:57 AM CDT) CHOLESTEROL,TOTAL 187 100 - 199 mg/dL 01/17/2016 11:24 AM CDT [facility] TRIGLYCERIDES 97 <150 mg/dL 01/17/2016 11:24 AM CDT [facility] HDL CHOLESTEROL 56 >40 mg/dL 01/17/2016 11:24 AM CDT [facility] NON-HDL CHOLESTEROL 131 <145 mg/dl 01/17/2016 11:24 AM CDT [facility] CHOL/HDL RATIO 3.34 <4.50 01/17/2016 11:24 AM CDT [facility] LDL CHOLESTEROL 112 <=130 mg/dL 01/17/2016 11:24 AM CDT [facility] PATIENT STATUS NON-FASTI NG 01/17/2016 11:24 AM CDT [facility] Blood specimen (specimen) BLOOD SPECIMEN / Unknown Venipuncture / Unknown 01/17/2016 10:57 AM CDT 01/17/2016 10:57 AM CDT Ayden Floyd MD CHEMISTRY [facility] [address] [place] [address], [place] [phone] * ANTI HCV (04/01/2015 9:48 AM CDT) HEPATITIS C ANTIBODY Non-Reacti ve Non-Reacti ve 04/01/2015 4:25 PM CDT [facility] TRAL LABORATORY Blood specimen (specimen) BLOOD SPECIMEN / Unknown Venipuncture / Unknown 04/01/2015 9:48 AM CDT 04/01/2015 9:48 AM CDT Narrative [facility] - 04/01/2015 4:25 PM CDT Antibodies to HCV not detected; does not exclude the possibility of exposure to HCV. Ayden Floyd MD SEND OUTS [facility] [address] [place] [address], * ANTI HIV 1/2 (04/01/2015 9:48 AM CDT) HIV-1/HIV-2 ANTIBODY Non-Reacti ve Non-Reacti ve 04/01/2015 4:25 PM CDT [facility] TRAL LABORATORY Blood specimen (specimen) BLOOD SPECIMEN / Unknown Venipuncture / Unknown 04/01/2015 9:48 AM CDT 04/01/2015 9:[address] [facility] LABORATORY - 04/01/2015 4:25 PM CDT HIV-1 p24 and HIV-1/HIV-2 Ab not detected Ayden Floyd MD SEND OUTS [facility] [address] [place] [address], from Last 3 Months or Most Recently Relevant to Health Maintenance
[2024-03-15] MEDS: 0.9 % SODIUM CHLORIDE 1000 ml 1,000 ML IV (20:05)
[2024-03-15 20:15] LABS: Basophils Absolute Auto 0.02 K/uL (0.00-0.30); Basophils Percent Auto 0.2 % (0.0-3.0); Eosinophils Absolute Auto 0.14 K/uL (0.00-0.50); Eosinophils Percent Auto 1.4 % (0.0-7.0); Hematocrit 41.2 % (33.0-51.0); Hemoglobin* 14.4 gm/dL (12.0-16.0); Immature Granulocytes Abs Auto 0.02 K/uL (0.00-0.30); Immature Granulocytes Pct Auto 0.2 %; Lymphocytes Percent Auto 19.7 % (20-44); Mean Corpuscular HGB Conc 35 gm/dL (32-36); Mean Corpuscular Hemoglobin 34 pg (26-34); Mean Corpuscular Volume 96 fL (80-100); Monocytes Percent Auto 6.2 % (0.0-11.0); Neutrophils Percent Auto 72.3 % (42.0-72.0); Platelet Count* 277 K/uL (140-440); Red Blood Count 4.29 m/uL (4.00-5.20); White Blood Count* 10.27 K/uL (4.50-11.00)
[2024-03-15] MEDS: HYDROmorphone 0.5 mg/0.5 ml inj IVP ×2 (20:17→22:10)
[2024-03-15 20:24] LABS: Slide Review Reflex No
[2024-03-15 20:28] LABS: Chloride* 106 mmol/L (96-114); Sodium* 139 mmol/L (135-149)
[2024-03-15 20:29] LABS: Potassium* 3.8 mmol/L (3.6-5.1)
[2024-03-15 20:31] LABS: Creatinine* 0.7 mg/dL (0.5-1.5); Est. Creatinine Clearance* 77.49; Estimated Glomerular Filt Rate 101 ml/min
[2024-03-15 20:32] LABS: Anion Gap 6 mEq/L (7-15); Blood Urea Nitrogen* 13 mg/dL (7-30); Calcium* 9.1 mg/dL (8.4-10.6); Carbon Dioxide* 27 mmol/L (20-32); Glucose* 132 mg/dL (60-115)
[2024-03-15 20:35] LABS: C Reactive Protein* 3.9 mg/dL (0.5-1.0)
[2024-03-15 21:35] VITALS: BP 138/78; PULSE 78; RESP 18; TEMP 36.9; O2SAT 98
--- NOTE | 2024-03-15 22:42 | PM.IMHP1 ---
Hospitalist- H&P: HPI History of Present Illness Date Seen: 03/15/24 Chief complaint: R eye swollen and painful Narrative: Anne Lynne is a 54 year old woman presents to the ED with a 3 day history of worsening right periorbital redness, swelling, and pain. Was assessed in the clinic for this 2 days ago and started on a course of oral Augmentin 875/125 BID, plus naproxen, warm compresses. Despite treating as such for the past 2 days, her condition continues to worsen, with increased redness, swelling, and pain. Denies visual changes. Denies eye drainage. Denies fever, rigors, or diaphoresis. Has had decreased appetite with some nausea without vomiting. 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 Has history of the same on the left, and is status post successful surgery for that in the past. Review of Systems Status of ROS: Reports: 6 or more systems reviewed and unremarkable except as noted in History and below Narrative: Denies pain with eye movements. No visual changes, including no diplopia. [facility] Medical History IUD (intrauterine device) in place ?Z97.5 - Presence of (intrauterine) contraceptive device (ICD-10) HSV-1 infection ?B00.9 - Herpesviral infection, unspecified (ICD-10) Reactive airway disease ?J45.909 - Unspecified asthma, uncomplicated (ICD-10) Seasonal allergies ?J30.2 - Other seasonal allergic rhinitis (ICD-10) IBS (irritable bowel syndrome) ?K58.9 - Irritable bowel syndrome without diarrhea (ICD-10) PCOS (polycystic ovarian syndrome) ?E28.2 - Polycystic ovarian syndrome (ICD-10) Eczema ?L30.9 - Dermatitis, unspecified (ICD-10) Elevated liver enzymes ?R74.8 - Abnormal levels of other serum enzymes (ICD-10) Snoring ?R06.83 - Snoring (ICD-10) Fatty liver ?K76.0 - Fatty (change of) liver, not elsewhere classified (ICD-10) Adenocarcinoma of colon ?C18.9 - Malignant neoplasm of colon, unspecified (ICD-10) Obstructive sleep apnea hypopnea, mild ?G47.33 - Obstructive sleep apnea (adult) (pediatric) (ICD-10) Surgical History History of dacryocystorhinostomy ?Z98.890 - Other specified postprocedural states (ICD-10) History of eye surgery ?Z98.890 - Other specified postprocedural states (ICD-10) History of section (2008) ?Z98.891 - History of uterine scar from previous surgery (ICD-10) History of third molar tooth extraction ?K08.409 - Partial loss of teeth, unspecified cause, unspecified class (ICD-10) Family History Mother Depression Coronary artery disease, Onset Age: 71 Heart disease Glaucoma Paternal Grandmother Stomach cancer Maternal Grandfather Coronary artery disease Depression Glaucoma Maternal Grandmother Thyroid disease Osteoporosis Brother Depression Alcohol dependence Sister Macular degeneration Father Stroke 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 Smoking Status: Never smoker Do you use any of these nicotine containing products: None Second hand tobacco smoke exposure: No How often do you have a drink containing alcohol: never How often do you have six or more drinks on one occasion: Never AUDIT-C Alcohol total score: 0 Non-prescribed substance use: denies use Little interest or pleasure in doing things: not at all Feeling down, depressed, or hopeless: not at all service: No Meds Home Medications and Allergies Home Medications ?Medication ?Instructions ?Recorded ?Confirmed ?Type albuterol sulfate 2.5 mg/3 mL 2.5 mg inhalation Q4-6H PRN 10/09/22 03/12/24 History (0.083 %) solution for nebulization albuterol sulfate 90 mcg/actuation 2 puff inhalation Q4-6H PRN 10/09/22 03/12/24 History aerosol inhaler cetirizine 10 mg tablet (Zyrtec) 10 mg PO QDAY PRN 01/24/23 03/12/24 History fluticasone furoate 27.5 2 spray intranasal QDAY 01/24/23 03/12/24 History mcg/actuation nasal spray,suspension (Flonase Sensimist) levonorgestrel 21 mcg/24 hr (up to 1 device intrauterine ONCE 05/14/23 03/12/24 History 8 years) 52 mg intrauterine device (Mirena) tobramycin 0.3 %-dexamethasone 0.1 1 drp ophthalmic (eye) QID 02/10/24 03/12/24 History % eye drops,suspension Home Medication Comments: Augmentin 875/125 BID for past 2 days. Allergies Allergy/AdvReac Type Severity Reaction Status Date / Time minocycline Allergy Severe SOB Verified 03/12/24 13:53 Tetracyclines Allergy Severe Rash Verified 03/12/24 13:53 nickel Allergy Intermediate Palpitation Verified 03/12/24 13:53 s adhesive Allergy Mild Rash Verified 03/12/24 13:53 thimerosal Allergy Mild Verified 03/12/24 13:53 [From Merthiolate (thimerosal)] oats Allergy Unknown Verified 03/12/24 13:53 sulfa eye drops Allergy Unknown Uncoded 03/12/24 13:53 Exam Narrative: Exam Narrative: Examined her in the ED. Appears uncomfortable, but no acute distress. Vision and rearing are adequate - no obvious or apparent visual loss. Alert and oriented x 4. Friendly and cooperative. TMs and external auditory canals normal. Dentition in good repair. Moist buccal mucosa. Swelling of right eye lid. Pain in medial epicanthic fold of right eye. No drainage. No proptosis. PERRLA. Conjugate gaze. No head or neck lymphadenopathy. Supple neck. Midline trachea. Normal thyroid. Lungs CTA. Heart with regular rhythm, normal S1S2, without murmur, gallop, or rub. Abdomen with active bowel sounds, soft, nontender. Extremities without edema. Moves all 4 extremities without limitations. Independent in transfer, station, and gait. Const: Vital Signs, click to edit/add: Vital Signs - 24 hr 03/15/24 19:26 03/15/24 21:35 Temperature 99.7 F H 98.4 F Pulse Rate [Left P ulse Oximeter] 99 78 Respiratory Rate 16 18 Blood Pressure [Le ft Upper Arm] 182/101 H 138/78 Pulse Oximetry 97 98 Oxygen Delivery Me thod Room Air Room Air Documenting provider has reviewed patient's vital signs: yes Hospitalist - H&P: Result Labs Labs: Short CBC 03/15/24 Range/Units 20:05 WBC 10.27 (4.50-11.00) K/uL Hgb 14.4 (12.0-16.0) gm/dL Hct 41.2 (33.0-51.0) % Plt Count 277 (140-440) K/uL BMP 03/15/24 20:05 Sodium 139 Potassium 3.8 Chloride 106 Carbon Dioxide 27 BUN 13 Creatinine 0.7 Glucose 132 H Calcium 9.[address] scan - right orbit: Attestation: I have reviewed the pertinent imaging results. Radiologist's impression: Impression: 1. Overall decreased size of rim enhancing fluid collection along the right nasolacrimal duct. Similar diffuse region of edema and fat attenuation of the right medial extraconal fat and extending through the septum to the right periorbital soft tissues. Increased soft tissue inflammation of the right periorbital soft tissues, particularly along the right lateral periorbital soft tissues and right face. Findings are concerning for worsening preseptal cellulitis and stable orbital cellulitis in the setting of dacryocystitis. 2. Unremarkable left orbit. 3. Minimal mucosal thickening in the right anterior ethmoid air cells. Assessment and Plan Assessment and plan (1) Preseptal cellulitis of right eye: Problem comment: - failed 2 day course of oral Augmentin 875/125 BID. - Dr. Lynn discussed with staff at [facility] ED, who discussed with ophthalmology, and recommended inpatient treatment with IV piperacillin/tazobactam, and consider re-image or transfer if condition not improving over next 24-48 hours. - Admit for IV piperacillin/tazobactam and pain management, plus warm compresses. - Will need outpatient follow-up with ophthalmology as already set for 03/25/24. Status: Acute (2) Orbital cellulitis on right: Problem comment: - failed 2 day course of oral Augmentin 875/125 BID. - Dr. Lynn discussed with staff at [facility] ED, who discussed with ophthalmology, and recommended inpatient treatment with IV piperacillin/tazobactam, and consider re-image or transfer if condition not improving over next 24-48 hours. - Admit for IV piperacillin/tazobactam and pain management, plus warm compresses. - Will need outpatient follow-up with ophthalmology as already set for 03/25/24. Status: Acute (3) Dacrocystitis: Problem comment: - failed 2 day course of oral Augmentin 875/125 BID. - Dr. Lynn discussed with staff at [facility] ED, who discussed with ophthalmology, and recommended inpatient treatment with IV piperacillin/tazobactam, and consider re-image or transfer if condition not improving over next 24-48 hours. - Admit for IV piperacillin/tazobactam and pain management, plus warm compresses. - Will need outpatient follow-up with ophthalmology as already set for 03/25/24. Status: Acute Plan 1. Reviewed with patient and her . 2. Answered their questions to their satisfaction. 3. Continue with other supportive efforts. 4. They are agreeable with above stated plans and recommendations. Total Time Spent Total Time Spent: 60 minutes
[2024-03-15 22:53] VITALS: BP 151/77; PULSE 81; RESP 16; TEMP 37.3; O2SAT 98; BMI 35.4
--- NOTE | 2024-03-15 23:01 | ED.EYEPROB ---
HPI - Eye Problem General Date Seen: 03/15/24 Chief complaint: Eye Problems Stated complaint: R eye swollen Time Seen by Provider: 03/15/24 19:22 Source: patient and family Mode of arrival: ambulatory Limitations: no limitations History of Present Illness HPI Narrative: Patient is a very nice 54-year-old female who has had recurrent problems with DacroCystitis out of her right eye, she had a previous procedure done on her left eye. She has been fighting this problem now for approximately 2 months she was seen 1 month ago in our ER. She is placed on Augmentin, drops and she got better. In the last 3 days she has got worsen her right eye again. She has noted some swelling some redness and the painful feeling. She is using her drops in her right eye, which are antibiotic and prednisolone. She is also using warm packs, and massage. She has taken 5 doses of Augmentin, she denies a fever but she thinks the redness is worse than it was last month. No purulent discharge noted, she does not have any pain when she looks around, denies any diplopia, no history of trauma or injury. Related Data Home Medications ?Medication ?Instructions ?Recorded ?Confirmed albuterol sulfate 2.5 mg/3 mL 2.5 mg inhalation Q4-6H PRN 10/09/22 03/12/24 (0.083 %) solution for nebulization albuterol sulfate 90 mcg/actuation 2 puff inhalation Q4-6H PRN 10/09/22 03/12/24 aerosol inhaler cetirizine 10 mg tablet (Zyrtec) 10 mg PO QDAY PRN 01/24/23 03/12/24 fluticasone furoate 27.5 2 spray intranasal QDAY 01/24/23 03/12/24 mcg/actuation nasal spray,suspension (Flonase Sensimist) levonorgestrel 21 mcg/24 hr (up to 1 device intrauterine ONCE 05/14/23 03/12/24 8 years) 52 mg intrauterine device (Mirena) tobramycin 0.3 %-dexamethasone 0.1 1 drp ophthalmic (eye) QID 02/10/24 03/12/24 % eye drops,suspension Previous Rx's ?Medication ?Instructions ?Recorded fluconazole 150 mg tablet 150 mg PO Q3D 2 doses #2 tabs 02/10/24 amoxicillin 875 mg-potassium 1 tab PO BID 10 days #20 tabs 03/12/24 clavulanate 125 mg tablet Allergies Allergy/AdvReac Type Severity Reaction Status Date / Time minocycline Allergy Severe SOB Verified 03/12/24 13:53 Tetracyclines Allergy Severe Rash Verified 03/12/24 13:53 nickel Allergy Intermediate Palpitation Verified 03/12/24 13:53 s adhesive Allergy Mild Rash Verified 03/12/24 13:53 thimerosal Allergy Mild Verified 03/12/24 13:53 [From Merthiolate (thimerosal)] oats Allergy Unknown Verified 03/12/24 13:53 sulfa eye drops Allergy Unknown Uncoded 03/12/24 13:53 Review of Systems Status of ROS: Reports: 10 or more systems reviewed and unremarkable except as noted in History and below [facility] Medical History IUD (intrauterine device) in place ?Z97.5 - Presence of (intrauterine) contraceptive device (ICD-10) HSV-1 infection ?B00.9 - Herpesviral infection, unspecified (ICD-10) Reactive airway disease ?J45.909 - Unspecified asthma, uncomplicated (ICD-10) Seasonal allergies ?J30.2 - Other seasonal allergic rhinitis (ICD-10) IBS (irritable bowel syndrome) ?K58.9 - Irritable bowel syndrome without diarrhea (ICD-10) PCOS (polycystic ovarian syndrome) ?E28.2 - Polycystic ovarian syndrome (ICD-10) Eczema ?L30.9 - Dermatitis, unspecified (ICD-10) Elevated liver enzymes ?R74.8 - Abnormal levels of other serum enzymes (ICD-10) Snoring ?R06.83 - Snoring (ICD-10) Fatty liver ?K76.0 - Fatty (change of) liver, not elsewhere classified (ICD-10) Adenocarcinoma of colon ?C18.9 - Malignant neoplasm of colon, unspecified (ICD-10) Obstructive sleep apnea hypopnea, mild ?G47.33 - Obstructive sleep apnea (adult) (pediatric) (ICD-10) Surgical History History of dacryocystorhinostomy ?Z98.890 - Other specified postprocedural states (ICD-10) History of eye surgery ?Z98.890 - Other specified postprocedural states (ICD-10) History of section (2008) ?Z98.891 - History of uterine scar from previous surgery (ICD-10) History of third molar tooth extraction ?K08.409 - Partial loss of teeth, unspecified cause, unspecified class (ICD-10) Family History Mother Depression Coronary artery disease, Onset Age: 71 Heart disease Glaucoma Paternal Grandmother Stomach cancer Maternal Grandfather Coronary artery disease Depression Glaucoma Maternal Grandmother Thyroid disease Osteoporosis Brother Depression Alcohol dependence Sister Macular degeneration Father Stroke 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 2 children. [employer]. 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 Smoking Status: Never smoker Do you use any of these nicotine containing products: None Second hand tobacco smoke exposure: No How often do you have a drink containing alcohol: never How often do you have six or more drinks on one occasion: Never AUDIT-C Alcohol total score: 0 Non-prescribed substance use: denies use Little interest or pleasure in doing things: not at all Feeling down, depressed, or hopeless: not at all service: No Exam Narrative: Exam Narrative: On examination she clearly has a doctor cystitis of her right eye with redness and swelling common along the inferior margin of her lower lid. A little bit on the superior. Her extraocular muscles are excellent, she has no proptosis noted. No preauricular nodes. Hers TMs are normal bilaterally oropharynx is normal her neck is supple there is a little bit of lymphadenopathy more on the right than the left. Const: Vital Signs, click to edit/add: Vital Signs - 24 hr 03/15/24 19:26 03/15/24 21:35 Temperature 99.7 F H 98.4 F Pulse Rate [Left P ulse Oximeter] 99 78 Respiratory Rate 16 18 Blood Pressure [Le ft Upper Arm] 182/101 H 138/78 Pulse Oximetry 97 98 Oxygen Delivery Me thod Room Air Room Air Documenting provider has reviewed patient's vital signs: yes Course Course ED Course: Laboratory work is reassuring. Her CT scan shows possible worsening of her preseptal component of her cellulitis from previous CT. I did speak to did the ER physician at [facility] was spoke with Ophthalmology. They thought it was reasonable to try IV antibiotics on her at this point. If she has worsening re CT to see if there is any increase in size of her or possible abscess. And then consideration of transfer she does have an appointment on March 25 with the returns supervisor who was able to do the procedure, I discussed her case with our hospitalist who accepted her for IV antibiotics pain medication. Vital Signs Vital signs: Initial Vital Signs Temperature 99.7 F H 03/15/24 19:26 Temperature Source Temporal Artery Scan 03/15/24 19:26 Pulse Rate 99 03/15/24 19:26 Pulse Rhythm Regular 03/15/24 19:26 Respiratory Rate 16 03/15/24 19:26 Blood Pressure 182/101 H 03/15/24 19:26 Blood Pressure Mean 128 H 03/15/24 19:26 Blood Pressure Position Sitting 03/15/24 19:26 Pulse Oximetry 97 03/15/24 19:26 Oxygen Delivery Method Room Air 03/15/24 19:26 Vital Signs Temperature 99.7 F H 03/15/24 19:26 Pulse Rate 99 03/15/24 19:26 Respiratory Rate 16 03/15/24 19:26 Blood Pressure 182/101 H 03/15/24 19:26 Pulse Oximetry 97 03/15/24 19:26 Oxygen Delivery Method Room Air 03/15/24 19:26 Temperature 98.4 F 03/15/24 21:35 Pulse Rate 78 03/15/24 21:35 Respiratory Rate 18 03/15/24 21:35 Blood Pressure 138/78 03/15/24 21:35 Pulse Oximetry 98 03/15/24 21:35 Oxygen Delivery Method Room Air 03/15/24 21:35 Medications Administered Medications: Generic Name Dose Route Start Last Admin Trade Name Freq PRN Reason Stop Dose Admin Hydromorphone HCl 0.5 mg 03/15/24 21:44 03/15/24 22:10 Hydromorphone 0.5 Mg/0.5 Ml Inj IVP 03/15/24 21:45 0.5 mg ONCE ONE Administration Discontinued Medications Generic Name Dose Route Start Last Admin Trade Name Freq PRN Reason Stop Dose Admin Hydromorphone HCl 0.5 mg 03/15/24 19:42 03/15/24 20:17 Hydromorphone 0.5 Mg/0.5 Ml Inj IVP 03/15/24 19:43 0.5 mg ONCE ONE Administration Sodium Chloride 1,000 mls @ 1,000 mls/hr 03/15/24 19:45 03/15/24 21:26 0.9 % Sodium Chloride 1000 Ml IV 03/15/24 20:44 Infused .Q1H [place] Infusion MDM - Eye Problem Differential Diagnosis Differential diagnosis: Likely corneal abrasion and conjunctivitis Medical Records Attestation: I reviewed the patient's medical records. Lab Data Attestation: I reviewed the patient's lab results. Labs: Lab Results 03/15/24 03/15/24 Range/Units 20:05 20:05 WBC 10.27 (4.50-11.00) K/uL RBC 4.29 (4.00-5.20) m/uL Hgb 14.4 (12.0-16.0) gm/dL Hct 41.2 (33.0-51.0) % MCV 96 (80-100) fL MCH 34 (26-34) pg MCHC 35 (32-36) gm/dL RDW Coeff of Kimberly 12.0 (11.5-15.5) % Plt Count 277 (140-440) K/uL Neut % (Auto) 72.3 H (42.0-72.0) % Lymph % (Auto) 19.7 L (20-44) % [place] % (Auto) 6.2 (0.0-11.0) % Eos % (Auto) 1.4 (0.0-7.0) % Baso % (Auto) 0.2 (0.0-3.0) % Neut # (Auto) 7.40 H (1.7-7.0) K/uL Lymph # (Auto) 2.00 (0.90-2.90) K/uL [place] # (Auto) 0.60 (0.00-0.90) K/UL Eos # (Auto) 0.14 (0.00-0.50) K/uL Baso # (Auto) 0.02 (0.00-0.30) K/uL Abs Immat Gran (auto) 0.02 (0.00-0.30) K/uL Imm/Tot Granulo (auto) 0.2 % Sodium 139 (135-149) mmol/L Potassium 3.8 (3.6-5.1) mmol/L Chloride 106 (96-114) mmol/L Carbon Dioxide 27 (20-32) mmol/L Anion Gap 6 L (7-15) mEq/L BUN 13 (7-30) mg/dL Creatinine 0.7 (0.5-1.5) mg/dL Estimated Creat Clear 77.49 Estimated GFR 101 ml/min Glucose 132 H (60-115) mg/dL Calcium 9.1 (8.4-10.6) mg/dL C-Reactive Protein 3.9 H Cancelled (0.5-1.0) mg/dL Imaging Data CT orbits: Attestation: I have reviewed the pertinent imaging results. Radiologist's impression: Patient: GILMA BASS Facility:?[facility] Patient ID:?[id number] Site Patient ID:?[id number]. Site :?[id number] Study:?CT-Orbits Bilateral with 98cc [id number] contrast-03/15/2024 8:36:20 PM Ordering Physician:Blanco Booker Final Report: Indication: pain and swelling RIGHT side of face hx of left tearduct reconstruction Technique: CT orbits with contrast. Helical axial sections were obtained through the orbits following administration of 98 cc Isovue 370 intravenous contrast material with multiplanar reformats Comparison: 02/12/2024 Findings: No fracture is demonstrated in the facial skeleton or mandible. Overall decreased size of rim enhancing fluid collection along the right nasolacrimal duct. Similar diffuse region of edema and fat attenuation of the right medial extraconal fat and extending through the septum to the right periorbital soft tissues with mildly increased inflammation of the right inferior orbital and right facial soft tissues concerning for combined orbital and preseptal/facial cellulitis. There is no evidence for penetrating injury to the ocular globes. The lenses are situated in their normally expected anterior locations. No radiodense or metallic foreign body is demonstrated. Unremarkable left orbit and preseptal soft tissues. Leftward deviation of the nasal septum. Mild mucosal thickening in the right maxillary sinus. The left maxillary sinus, bilateral sphenoid sinuses are clear. Mild mucosal thickening in the right anterior ethmoid air cells. The right and left frontal sinuses are clear. The visualized portions of the brain are normal in appearance. Impression: 1. Overall decreased size of rim enhancing fluid collection along the right nasolacrimal duct. Similar diffuse region of edema and fat attenuation of the right medial extraconal fat and extending through the septum to the right periorbital soft tissues. Increased soft tissue inflammation of the right periorbital soft tissues, particularly along the right lateral periorbital soft tissues and right face. Findings are concerning for worsening preseptal cellulitis and stable orbital cellulitis in the setting of dacryocystitis. 2. Unremarkable left orbit. 3. Minimal mucosal thickening in the right anterior ethmoid air cells. Please note that all CT scans at this facility use dose modulation, iterative reconstruction, and/or weight-based dosing when appropriate to reduce radiation dose to as low as reasonably achievable. Dictated by Jake Espinosa MD @ 03/15/2024 9:20:53 PM (Electronic Signature) Discharge Plan Discharge Clinical Impression: Periorbital cellulitis, Dacrocystitis, History of dacryocystorhinostomy Patient Disposition: Admitted As Observation Condition: Stable
[2024-03-15] MEDS: KETOROLAC 30 MG/ML inj IVP (23:19)
[2024-03-15] MEDS: SODIUM CHLORIDE 0.9 % (FLUSH) 10 ML SYRINGE 5 ML IVF (23:21)
[2024-03-15] MEDS: PIPERACILLIN/TAZOBACTAM 3.375 GM in 0.9 % SODIUM CHLORIDE Mini-bag 100 ML IVPB (23:41)
[2024-03-16] VITALS (7 sets, daily range): BP systolic 116–146; BP diastolic 68–76; PULSE 56–98; RESP 14–16; TEMP 36.5–37.1; O2SAT 97–100
[2024-03-16] MEDS: ACETAMINOPHEN 325 MG TABLET 650 MG PO ×4 (00:47→23:50)
[2024-03-16] MEDS: PIPERACILLIN/TAZOBACTAM 3.375 GM in 0.9 % SODIUM CHLORIDE Mini-bag 100 ML IVPB ×4 (05:04→23:50)
[2024-03-16] MEDS: SODIUM CHLORIDE 0.9 % (FLUSH) 10 ML SYRINGE 5 ML IVF (05:05)
[2024-03-16] MEDS: KETOROLAC 15 MG/ML inj IVP ×3 (05:17→20:26)
[2024-03-16 06:31] LABS: Lactate* 0.8 mmol/L (0.5-1.9)
[2024-03-16 06:32] LABS: Hematocrit 36.9 % (33.0-51.0); Hemoglobin* 12.6 gm/dL (12.0-16.0); Mean Corpuscular HGB Conc 34 gm/dL (32-36); Mean Corpuscular Hemoglobin 33 pg (26-34); Mean Corpuscular Volume 97 fL (80-100); Platelet Count* 229 K/uL (140-440); Red Blood Count 3.81 m/uL (4.00-5.20); White Blood Count* 9.02 K/uL (4.50-11.00)
[2024-03-16 06:43] LABS: Slide Review Reflex No
[2024-03-16 06:56] LABS: C Reactive Protein* 4.2 mg/dL (0.5-1.0)
--- NOTE | 2024-03-16 06:59 | PC.NURSE ---
Pt is alert and oriented x3. Afebrile. Pt reports 7/10 pain in right face, pain managed with PRN medications. Right periorbital cellulitis has decreased in swelling and redness has pulled back.?Pt is up ad carol, tolerating a regular diet, and slept intermittently throughout night. Night uneventful. ?
--- NOTE | 2024-03-16 08:51 | PM.IMPN1 ---
Progress Note: A&P Assessment and plan (1) Preseptal cellulitis of right eye: Problem details: - failed 2 day course of oral Augmentin 875/125 BID prior to admission - in the emergency room, Dr. Arce discussed with staff at [facility] ED, who discussed with ophthalmology, and recommended inpatient treatment with IV piperacillin/tazobactam, and consider re-image or transfer if condition not improving over next 24-48 hours - continue IV piperacillin/tazobactam and pain management (Toradol helpful), plus warm compresses. - Will need outpatient follow-up with ophthalmology as already set for 03/25/24. Status: Acute (2) Dacrocystitis: Problem details: - per above Status: Acute Plan - continue IV abx, pain management - Kory hose for ppx - possibly home tomorrow if continued improvement Subjective Date Seen: 03/16/24 Interval history: Alejandrina was admitted to the hospital last night for right-sided periorbital cellulitis and dacrocystitis. She failed 48 hours of oral antibiotic therapy prior to admission, Zosyn was initiated last night. She remains afebrile with in reassuring vital signs and white blood count. No concerns for hospitalist team. Exam Narrative: Exam Narrative: GEN: Alert and oriented, nontoxic HEENT: Erythema and edema of right eyelid, upper and lower. Erythema appears to be improved from outline drawn upon admission. EOMIs, notes mild discomfort with full range of motion of eye. Eyelid opens 75%. CV: RRR, No concerning murmurs R: LCTA bilaterally without concerning wheezing Ext: wwp, no concerning edema, wearing Kory hose bilaterally Skin: No other concerning skin lesions or rashes on exposed skin Neuro: Nonfocal Psych: Appropriate Const: Vital Signs, click to edit/add: Vital Signs - 24 hr 03/15/24 19:26 03/15/24 21:35 03/15/24 22:53 Temperature 99.7 F H 98.4 F 99.2 F Pulse Rate [Left P ulse Oximeter] 99 78 Pulse Rate [Pulse Oximeter] 81 Respiratory Rate 16 18 16 Blood Pressure [Le ft Arm] 151/77 H Blood Pressure [Le ft Upper Arm] 182/101 H 138/78 Pulse Oximetry 97 98 98 Oxygen Delivery Me thod Room Air Room Air Room Air 03/15/24 22:53 03/16/24 00:55 03/16/24 05:10 Temperature 98.4 F Pulse Rate [Left P ulse Oximeter] Pulse Rate [Pulse Oximeter] 56 L Respiratory Rate 16 Blood Pressure [Le ft Arm] 146/74 H Blood Pressure [Le ft Upper Arm] Pulse Oximetry 100 97 Oxygen Delivery Me thod Room Air Room Air Room Air Labs Labs: Laboratory Results - last 24 hr 03/15/24 03/15/24 03/16/24 20:05 20:05 05:53 WBC 10.27 9.02 RBC 4.29 3.81 L Hgb 14.4 12.6 Hct 41.2 36.9 MCV 96 97 MCH 34 33 MCHC 35 34 RDW Coeff of Kimberly 12.0 Plt Count 277 229 Neut % (Auto) 72.3 H Lymph % (Auto) 19.7 L [place] % (Auto) 6.2 Eos % (Auto) 1.4 Baso % (Auto) 0.2 Neut # (Auto) 7.40 H Lymph # (Auto) 2.00 [place] # (Auto) 0.60 Eos # (Auto) 0.14 Baso # (Auto) 0.02 Abs Immat Gran (auto) 0.02 Imm/Tot Granulo (auto) 0.2 Sodium 139 Potassium 3.8 Chloride 106 Carbon Dioxide 27 Anion Gap 6 L BUN 13 Creatinine 0.7 Estimated Creat Clear 77.49 Estimated GFR 101 Glucose 132 H Lactate 0.8 Calcium 9.1 C-Reactive Protein 3.9 H Cancelled 4.2 H
[2024-03-16] MEDS: LOPERAMIDE HCL 2 MG CAPSULE PO (17:43)
--- NOTE | 2024-03-16 18:11 | PC.NURSE ---
PT is a&o x3, calm and cooperative. PT is up and carol independently. PT is having frequent diarrhea, loperamide 2mg was given. Ketoralac and Acetaminophen have been on rotation, per patients request. PT denies pain throughout the shift. PT states her eye is feeling easier to open.
[2024-03-16] MEDS: CETIRIZINE HCL 10 MG TABLET PO (21:26)
[2024-03-17 03:00] VITALS: BP 120/68; PULSE 58; RESP 15; TEMP 36.9; O2SAT 98
[2024-03-17] MEDS: ACETAMINOPHEN 325 MG TABLET 650 MG PO (05:14)
[2024-03-17] MEDS: PIPERACILLIN/TAZOBACTAM 3.375 GM in 0.9 % SODIUM CHLORIDE Mini-bag 100 ML IVPB (05:15)
[2024-03-17 06:53] LABS: Basophils Absolute Auto 0.03 K/uL (0.00-0.30); Basophils Percent Auto 0.5 % (0.0-3.0); Eosinophils Absolute Auto 0.24 K/uL (0.00-0.50); Eosinophils Percent Auto 3.9 % (0.0-7.0); Hematocrit 35.3 % (33.0-51.0); Hemoglobin* 12.3 gm/dL (12.0-16.0); Immature Granulocytes Abs Auto 0.02 K/uL (0.00-0.30); Immature Granulocytes Pct Auto 0.3 %; Lymphocytes Absolute Auto 2.09 K/uL (0.90-2.90); Lymphocytes Percent Auto 33.7 % (20-44); Mean Corpuscular HGB Conc 35 gm/dL (32-36); Mean Corpuscular Hemoglobin 34 pg (26-34); Mean Corpuscular Volume 96 fL (80-100); Monocytes Percent Auto 8.7 % (0.0-11.0); Neutrophils Absolute Auto 3.29 K/uL (1.7-7.0); Neutrophils Percent Auto 52.9 % (42.0-72.0); Platelet Count* 227 K/uL (140-440); RDW Coefficient of Variation % 12.1 % (11.5-15.5); Red Blood Count 3.66 m/uL (4.00-5.20); White Blood Count* 6.21 K/uL (4.50-11.00)
[2024-03-17 07:01] LABS: Slide Review Reflex No
[2024-03-17 07:11] LABS: Chloride* 111 mmol/L (96-114); Sodium* 138 mmol/L (135-149)
[2024-03-17 07:12] LABS: Potassium* 4.1 mmol/L (3.6-5.1)
[2024-03-17 07:14] LABS: Anion Gap 2 mEq/L (7-15); Carbon Dioxide* 25 mmol/L (20-32); Creatinine* 0.7 mg/dL (0.5-1.5); Est. Creatinine Clearance* 77.49; Estimated Glomerular Filt Rate 101 ml/min
[2024-03-17 07:15] LABS: Blood Urea Nitrogen* 13 mg/dL (7-30); Calcium* 8.3 mg/dL (8.4-10.6); Glucose* 92 mg/dL (60-115)
[2024-03-17 07:18] LABS: C Reactive Protein* 3.5 mg/dL (0.5-1.0)
[2024-03-17 07:46] VITALS: BP 133/71; PULSE 60; RESP 12; TEMP 37.1; O2SAT 97
--- NOTE | 2024-03-17 08:08 | PC.NURSE ---
Patient pleasant, alert and oriented. Ambulates independently. Given PRN Ketorolac and PRN Tylenol for pain. Rates pain 2/10 in right eye. Reported a mild headache. Refused scheduled Tobramycin/Dexameth eye drops reporting that they don?t help. Declined SCD use but wearing Teds. ?
--- NOTE | 2024-03-17 09:41 | PC.NURSE ---
Discharge: Patient pleasant and cooperative. Patient vitally stable, lungs clear, BS WNL, IV removed, catheter intact. Patient independent in room and rates right eye discomfort 1/10. Right eye is no longer red and very little edema. Patient urinating and tolerating regular diet. Patient signed belongings sheet and discharge from. Patient had no further questions regarding discharge. Patient left the floor by foot to home at 0936.
--- NOTE | 2024-03-17 10:02 | PM.DS1 ---
DS: Providers Provider Date Seen: 03/17/24 Date of admission: 03/15/24 22:55 Primary care physician: Bailee Argueta PA-C Admitting Clinician: Shiv Christine MD Attending Physician on discharge: Sadia Parks MD Date of Discharge: 03/17/24 DS: Diagnosis Discharge Diagnosis (1) Orbital cellulitis on right: Status: Acute Problem details: - failed 2 day course of oral Augmentin 875/125 BID prior to admission - treated with IV Zosyn, significant improvement on hospital day 3 - has appt on 03/[address] Gustafson at [facility] for f/u and discussion of surgical intervention (2) Preseptal cellulitis of right eye: Status: Acute Problem details: - per above (3) Dacrocystitis: Status: Acute Problem details: - per above DS: Summary Hospital Course Hospital Course: Alejandrina was admitted to the hospital for R periorbital cellulitis and dacrocystitis, failed 48 hours of Augmentin prior to admission. Treated with IV Zosyn, had significant improvement with 24 hours of IV antibiotics and medically appropriate for d/c home on 03/17. Labs reassuring, f/u has been scheduled for 03/17 in the afternoon with Dr. Gustafson of [facility] in [place]. Status at Discharge Functional status at discharge: independent ambulation Overall status at discharge: patient is back to baseline Time Spent with Patient Time attestation: Total time spent providing and/or coordinating discharge services: Time spent: Less than 30 minutes Exam Narrative: Exam Narrative: GEN: Alert and oriented, sitting up in bed HEENT: Significant improvement in edema and erythema of R eyelid, eye opens fully and EOMIs CV: RRR, No concerning murmurs R: LCTA bilaterally without concerning wheezing Ext: wwp, no concerning edema Neuro: Nonfocal Psych: Appropriate Const: Vital Signs, click to edit/add: Vital Signs - 24 hr 03/16/24 11:00 03/16/24 15:00 03/16/24 15:00 Temperature 97.9 F 98.7 F Pulse Rate [Pulse Oximeter] 61 61 Respiratory Rate 16 14 Blood Pressure [Le ft Arm] 134/71 133/76 Blood Pressure [Ri ght Arm] Pulse Oximetry 99 99 99 Oxygen Delivery Me thod Room Air Room Air Room Air 03/16/24 19:00 03/16/24 23:00 03/16/24 23:00 Temperature 98.6 F 97.7 F Pulse Rate [Pulse Oximeter] 98 65 Respiratory Rate 15 16 16 Blood Pressure [Le ft Arm] 141/71 H 116/68 Blood Pressure [Ri ght Arm] Pulse Oximetry 98 99 99 Oxygen Delivery Me thod Room Air Room Air 03/17/24 03:00 03/17/24 07:46 03/17/24 07:46 Temperature 98.4 F 98.8 F Pulse Rate [Pulse Oximeter] 58 L 60 60 Respiratory Rate 15 12 12 Blood Pressure [Le ft Arm] 120/68 Blood Pressure [Ri ght Arm] 133/71 Pulse Oximetry 98 97 Oxygen Delivery Me thod Room Air Room Air 03/17/24 07:46 Temperature Pulse Rate [Pulse Oximeter] Respiratory Rate 12 Blood Pressure [Le ft Arm] Blood Pressure [Ri ght Arm] Pulse Oximetry 97 Oxygen Delivery Me thod Room Air DS: Data Data Completed and Pending Labs on day of discharge: Labs from last 24 hours 03/17/24 06:40 WBC 6.21 RBC 3.66 L Hgb 12.3 Hct 35.3 MCV 96 MCH 34 MCHC 35 RDW Coeff of Kimberly 12.1 Plt Count 227 Neut % (Auto) 52.9 Lymph % (Auto) 33.7 [place] % (Auto) 8.7 Eos % (Auto) 3.9 Baso % (Auto) 0.5 Neut # (Auto) 3.29 Lymph # (Auto) 2.09 [place] # (Auto) 0.50 Eos # (Auto) 0.24 Baso # (Auto) 0.03 Abs Immat Gran (auto) 0.02 Imm/Tot Granulo (auto) 0.3 Sodium 138 Potassium 4.1 Chloride 111 Carbon Dioxide 25 Anion Gap 2 L BUN 13 Creatinine 0.7 Estimated Creat Clear 77.49 Estimated GFR 101 Glucose 92 Calcium 8.3 L C-Reactive Protein 3.5 H Discharge Plan Discharge Disposition: Home, Self-Care Date of Admission: 03/15/24 22:55 Attending Provider on Discharge: Sadia Parks Primary Care Provider: Bailee Argueta Condition: Stable Anticipated Discharge Date/Time: 03/17/24 07:53 Discharge Medications: New ketorolac 10 mg tablet 10 mg PO Q8H PRN (Reason: pain) Qty: 7 0RF Rx Instructions: do not take if you're taking Ibuprofen. Maximum total duration of 5 days from all oral, intranasal, or parenteral formulations Continued albuterol sulfate 2.5 mg /3 mL (0.083 %) solution for nebulization 2.5 mg inhalation Q4-6H PRN albuterol sulfate 90 mcg/actuation HFA aerosol inhaler 2 puff inhalation Q4-6H PRN Mirena 21 mcg/24 hours (8 yrs) 52 mg intrauterine device 1 device intrauterine ONCE Rx Instructions: as a single dose amoxicillin-pot clavulanate 875-125 mg tablet 1 tab PO BID 10 Days Qty: 20 0RF cetirizine [Zyrtec] 10 mg tablet 10 mg PO HS Flonase Sensimist 27.5 mcg/actuation spray,suspension 2 spray intranasal DAILY PRN Rx Instructions: into each nostril tobramycin-dexamethasone 0.3-0.1 % drops,suspension 1 drp ophthalmic (eye) QID Rx Instructions: RIGHT EYE ibuprofen [Advil] 200 mg tablet 400 mg PO HS fluconazole 150 mg tablet 150 mg PO Q3D PRN Rx Instructions: may repeat second dose 72 hrs after first dose if symptoms persist Discharge Orders: Discharge Order (Routine); Ordered 03/17/24 Ordered By: Sadia Parks Patient Education: Ketorolac (By mouth) (Toradol), Periorbital Cellulitis (ED) Activity Level: Activity as Tolerated Discharge Diet: Regular Follow Up Appointments: Bailee Argueta PA-C [Primary Care Provider] - Forms: [facility] Info Instructions
== END 2024-03-17 09:36 | disposition home or self-care (01) | DRG 603 ==
LOC: ED 22:44 → MEDSURG 22:53
PROVIDERS: Family Medicine; Admitting Provider Internal Medicine; Emergency Provider Family Medicine; PCP Physician Assistant; Visit Provider Internal Medicine
DX: L03.213 Periorbital cellulitis (principal); H05.011 Cellulitis of right orbit; H04.321 Acute dacryocystitis of right lacrimal passage; Z98.890 Other specified postprocedural states
CPT/HCPCS: 36415; 70481; 80048; 83605; 85025; 85027; 86140; 99284; A9270; J1170; J1885; J2543; J7030; Q9967

== ENCOUNTER 2024-05-18 10:08 | Outpatient (REF) | payer OTHER, SELFPAY ==
--- OUTSIDE RECORDS SUMMARY | 2024-05-18 10:11 | XMS_ITS | Encounter Summary ---
Author Organization [facility] Address [address] [place] [id number] Care Team Providers Care Sqe Name Role Phone Page Wood Primary Care Provider Juan Jose narayanan Encounter Details Date Type Department Care Team (Latest Contact Info) Description 04/28/2024 Travel Social History Tobacco Use Types Packs/Day Years [...] on file Sexual Orientation Not on file Travel History Travel Start Travel End [place] 04/19/2024 04/25/2024 documented as of this encounter Plan of Treatment Not on file documented as of this encounter Visit Diagnoses Not on filedocumented in this encounter Care Teams Sqe Relationship Specialty Start Date End Date Page Wood PCP - General 04/06/24 documented as of this encounter
--- OUTSIDE RECORDS SUMMARY | 2024-05-18 10:11 | XMS_ITS | Encounter Summary ---
Author Organization [facility] Address [address] [place] [address]. [place] [address] Care Team Providers Care Chin Strap Sewer Name Role Phone Gerardjanuary Primary Care Provider [phone] Page Wood Primary Care Provider Juan Jose narayanan Encounter Details Date Type Department Care Team (Late st Contact Info) Description 2024 Orders Only [facility] [address] [phone] Deepthi Sanders MD COLON RECTAL SURGERY [address] [id number] Colon cancer (H) (Primary Dx) Social History [...] file Travel History Travel Start Travel End [place] 04/19/2024 04/25/2024 documented as of this encounter Plan of Treatment Scheduled Orders Name Type Priority Associated Diagnoses Orde r Schedule [facility] Lab Routine Colon cancer (H) Expected: 2024, Expires: documented as of this encounter Visit Diagnoses Diagnosis Colon cancer (H)- Primary Malignant neoplasm of colon, unspecified site documented in this encounter Care Teams Chin Strap Sewer Relationship Specialty Start Date End Date Gerardjanuary [address] [place] [address] PCP - General Physician Diamond Setter 04/23/23 04/05/24 Page Wood PCP - General 04/06/24 documented as of this encounter
--- OUTSIDE RECORDS SUMMARY | 2024-05-18 10:11 | XMS_ITS | Encounter Summary ---
Author Organization [facility] Address [address] [place] [address] Care Team Providers Care Defence Force Member Other Ranks Name Role Phone Page Wood Primary Care Provider Juan Jose narayanan Encounter Details Date Type Department Care Team (Latest Contact Info) Description 05/01/2024 Travel Social History Tobacco Use Types Packs/Day [...] file Travel History Travel Start Travel End [place] 04/19/2024 04/25/2024 documented as of this encounter Plan of Treatment Not on file documented as of this encounter Visit Diagnoses Not on filedocumented in this encounter Care Teams Defence [employer] Member Other Ranks Relationship Specialty Start Date End Date Page Wood PCP - General 04/06/24 documented as of this encounter
--- OUTSIDE RECORDS SUMMARY | 2024-05-18 10:11 | XMS_ITS | Clinical Summary ---
Author Organization [facility] Address [place], [place] [address] Care Team Providers Care Water Resource Manager Name Role Phone Unavailable Primary Care Provider [...] Father b 1938 Heart Disease Maternal Grandfather [place] Psychiatric illness Maternal Grandfather bipolar Arthritis Maternal Grandmother rheumat oid Other Maternal Grandmother hypothy roid Heart Disease Mother stents Hypertension Mother b 1941 Psychiatric illness Mother depressi on Cancer-colon Paternal Grandmother Hypertension Paternal Uncle d 40 yo [place] Other Sister eye disease Cancer-breast No Family [...] Outcome GA Total Labor Labor/2nd/3rd Weight Sex Type Anes PTL Blanche A1 A5 Name Clin 1995 Term 41w0 d 24h 00m/ 3.54 kg (7 lb 13 oz) M Vag 2008 Term 40w2 d 3.88 kg (8 lb 9 oz) M C-Sec tion 8 9 luke Last Filed Vital Signs [...] of 2) 01/28/2018 Tetanus booster 05/19/2019 05/19/2009, 10/1998, 04/17/1990 Mammogram for age 45-75 07/15/2020 07/15/20 19, 06/04/2018, 04/02/2017, Additional history exists Lipids for age 45-75 01/16/2021 01/17/2016, 06/16/20 10 COVID-19 vaccine series (2022- season) 2023 Influenza for age 50-64 06/14/2024 07/30/20 14, 07/10/2013, 09/08/2012, Additional history exists Pap test for age 21-65 01/24/2026 3, 01/24/2023, 07/01/2018, Additional history exists Tdap Completed [...] 16 Negative Negative 01/28/2023 1:45 PM CDT [facility] TYPE 18 Negative Negative 01/28/2023 1:45 PM CDT [facility] OTHER HIGH RISK TYPES Negative Negative 01/28/2023 1:45 PM CDT [facility] Other (Cervical) 01/24/2023 12:00 PM CDT 01/25/2023 10:17 AM CDT Narrative [facility] - 01/28/2023 1:45 PM CDT HPV types 16, 18, 31, 33, 35, 39, 45, 51, 52, 56, 58, 59, 66 and 68 DNA were undetectable or below the pre-set threshold. Methodology: Gwyn Theresa 4800 HPV Test Bailee Argueta PA-C [facility] [address] [place] [address], [place] * SCAN-MAMMOGRAPHY REPORT (07/15/2019 12:00 AM CDT) Anatomical Region Laterality Modality Other Scanner OTHER * LIPID PANEL W REFLEX MEASURED LDL (01/17/2016 10:57 AM CDT) CHOLESTEROL,TOTAL 187 100 - 199 mg/dL 01/17/2016 11:24 AM CDT [facility] TRIGLYCERIDES 97 <150 mg/dL 01/17/2016 11:24 AM CDT [facility] HDL CHOLESTEROL 56 >40 mg/dL 01/17/2016 11:24 AM CDT [facility] NON-HDL CHOLESTEROL 131 <145 mg/dl 01/17/2016 11:24 AM CDT [facility] CHOL/HDL RATIO 3.34 <4.50 01/17/2016 11:24 AM CDT [facility] LDL CHOLESTEROL 112 <=130 mg/dL 01/17/2016 11:24 AM CDT [facility] PATIENT STATUS NON-FASTI NG 01/17/2016 11:24 AM CDT [facility] Blood specimen (specimen) BLOOD SPECIMEN / Unknown Venipuncture / Unknown 01/17/2016 10:57 AM CDT 01/17/2016 10:57 AM CDT Ayden Floyd MD CHEMISTRY [facility] [address] [place] [address], * ANTI HCV (04/01/2015 9:48 AM CDT) HEPATITIS C ANTIBODY Non-Reacti ve Non-Reacti ve 04/01/2015 4:25 PM CDT [facility] Blood specimen (specimen) BLOOD SPECIMEN / Unknown Venipuncture / Unknown 04/01/2015 9:48 AM CDT 04/01/2015 9:48 AM CDT Narrative [facility] - 04/01/2015 4:25 PM CDT Antibodies to HCV not detected; does not exclude the possibility of exposure to HCV. Ayden Floyd MD SEND OUTS [facility] [address] [place] [address], * ANTI HIV 1/2 (04/01/2015 9:48 AM CDT) HIV-1/HIV-2 ANTIBODY Non-Reacti ve Non-Reacti ve 04/01/2015 4:25 PM CDT [facility] Blood specimen (specimen) BLOOD SPECIMEN / Unknown Venipuncture / Unknown 04/01/2015 9:48 AM CDT 04/01/2015 9:48 AM CDT [facility] - 04/01/2015 4:25 PM CDT HIV-1 p24 and HIV-1/HIV-2 Ab not detected Ayden Floyd MD SEND OUTS [facility] [address] [place] [address], from Last 3 Months or Most Recently Relevant to Health Maintenance
--- OUTSIDE RECORDS SUMMARY | 2024-05-18 10:11 | XMS_ITS | Referral Summary ---
Author Organization [facility] Address [address] [place] [address] Care Team Providers Care Timber Killer Name Role Phone Page Wood Primary Care Provider Juan Jose narayanan Encounters Date Type Department Care Team Description 05/01/2024 Travel 05/01/2024 8:48 AM CDT - 05/01/2024 11:59 PM CDT Hospital Encounter [facility] [address] [facility] [address] [place] [address] Deepthi Sanders MD Colon cancer (H) Discharge Disposition: Home or Self Care 04/28/2024 Travel from Last 3 Months Allergies Active Allergy [...] Active fluticasone (FLONASE) 50 MCG/ACT nasal spray [place] 1 spray into both nostrils daily Active [...] file Travel History Travel Start Travel End [place] 04/19/2024 04/25/2024 Last Filed Vital Signs Vital Sign Reading [...] 05/29/2023 3:00 PM CDT Plan of Treatment Not on file Procedures Procedure Name Priority Date/Time Associated Diagnosis Comments CT CHEST/ABDOMEN/PELVI S W CONTRAST Routine 05/01/2024 9:32 AM CDT Colon cancer (H) GLUCOSE BY METER Routine 06/08/2023 7:48 AM CDT from Last 3 Months or Most Recently Relevant to Health Maintenance Results * CT Chest/Abdomen/Pelvis w Contrast (05/01/2024 9:32 AM CDT) Anatomical Region Laterality Modality Abdomen/Pelvis, Chest, SUBRA D CT BODY, UMP CT CHEST, UMP CT ABDOMEN PELVIS, RAD CT Computed Tomography Impressions 05/01/2024 10:18 AM CDT IMPRESSION: 1. ??No evidence of new or worsening metastatic disease seen in the chest, abdomen and pelvis. 2. ??Stable pulmonary findings with unchanged tubular branching opacity and adjacent nodularity measuring up to 7 mm. ANDREW PAULINO MD SYSTEM ID: ??[id number] Narrative 05/01/2024 10:[address] CHEST/ABDOMEN/PELVIS W CONTRAST 05/01/2024 9:32 AM CLINICAL HISTORY: Colon cancer (H) TECHNIQUE: CT scan of the chest, abdomen, and pelvis was performed following injection of IV contrast. Multiplanar reformats were obtained. Dose reduction techniques were used. CONTRAST: 97mL Isovue-370 COMPARISON: CT chest, abdomen and pelvis performed on 07/24/2023 FINDINGS: LUNGS AND PLEURA: Stable appearance of branching tubular opacity in the left lower lobe as well as adjacent pulmonary nodularity measuring up to 7 mm (series 12, image 149). No pleural effusion or pneumothorax is seen. MEDIASTINUM/AXILLAE: No lymphadenopathy. No thoracic aortic aneurysms. CORONARY ARTERY CALCIFICATION: None. HEPATOBILIARY: Diffuse hepatic steatosis is present. More focal fatty infiltration is seen adjacent to the falciform ligament. Gallbladder is unremarkable. PANCREAS: No significant mass, duct dilatation, or inflammatory change. SPLEEN: Normal size. ADRENAL GLANDS: No significant nodules. KIDNEYS/BLADDER: Stable subcentimeter hypodense lesion within the midpole of the left kidney which is too small to characterize. Right-sided extrarenal pelvis is again seen. Urinary bladder is moderately distended. BOWEL: Postsurgical changes are seen along the rectosigmoid colon. Small bowels are nondilated. Appendix is nondilated. PELVIC ORGANS: Intrauterine device is seen within the endometrium of the uterus. ADDITIONAL FINDINGS: Scattered vascular calcifications are seen within the abdominal aorta. MUSCULOSKELETAL: Stable sclerotic lesions in the pelvis measuring up to 7 mm along the right ilium. Another example includes a 6 mm lesion along the left ilium. Mild degenerative changes are seen in the spine. Procedure Note Andrew Paulino MD - 05/01/2024 CT CHEST/ABDOMEN/PELVIS W CONTRAST 05/01/2024 9:32 AM CLINICAL HISTORY: Colon cancer (H) TECHNIQUE: CT scan of the chest, abdomen, and pelvis was performed following injection of IV contrast. Multiplanar reformats were obtained. Dose reduction techniques were used. CONTRAST: 97mL Isovue-370 COMPARISON: CT chest, abdomen and pelvis performed on 07/24/2023 FINDINGS: LUNGS AND PLEURA: Stable appearance of branching tubular opacity in the left lower lobe as well as adjacent pulmonary nodularity measuring up to 7 mm (series 12, image 149). No pleural effusion or pneumothorax is seen. MEDIASTINUM/AXILLAE: No lymphadenopathy. No thoracic aortic aneurysms. CORONARY ARTERY CALCIFICATION: None. HEPATOBILIARY: Diffuse hepatic steatosis is present. More focal fatty infiltration is seen adjacent to the falciform ligament. Gallbladder is unremarkable. PANCREAS: No significant mass, duct dilatation, or inflammatory change. SPLEEN: Normal size. ADRENAL GLANDS: No significant nodules. KIDNEYS/BLADDER: Stable subcentimeter hypodense lesion within the midpole of the left kidney which is too small to characterize. Right-sided extrarenal pelvis is again seen. Urinary bladder is moderately distended. BOWEL: Postsurgical changes are seen along the rectosigmoid colon. Small bowels are nondilated. Appendix is nondilated. PELVIC ORGANS: Intrauterine device is seen within the endometrium of the uterus. ADDITIONAL FINDINGS: Scattered vascular calcifications are seen within the abdominal aorta. MUSCULOSKELETAL: Stable sclerotic lesions in the pelvis measuring up to 7 mm along the right ilium. Another example includes a 6 mm lesion along the left ilium. Mild degenerative changes are seen in the spine. IMPRESSION: 1. No evidence of new or worsening metastatic disease seen in the chest, abdomen and pelvis. 2. Stable pulmonary findings with unchanged tubular branching opacity and adjacent nodularity measuring up to 7 mm. ANDREW PAULINO MD SYSTEM ID: [id number] Deepthi Sanders MD IMG CT ORDERABLE S * Glucose by meter (06/08/2023 7:48 AM CDT) GLUCOSE BY METER POCT 91 70 - 99 mg/dL 06/08/2023 7:55 AM CDT [facility] Blood, Capillary BLOOD SPECIMEN / Unknown 06/08/2023 7:48 AM CDT 06/08/2023 7:55 AM CDT Deepthi Sanders MD LAB - BE[facility]ER POC [facility] P[facility] [address] Lab (1st floor, no room number) [place] [address], [facility] [phone] from Last 3 Months or Most Recently Relevant to Health Maintenance Advance Directives For more information, please contact: [phone] * Full Code (Latest Code Status on File) Date Activated Date Inactivated Comments 06/06/2023 2:05 PM 06/08/2023 5:12 PM All basic an d advanced life-sustaining interventions are performed as appropriate Question Answer Comments Code status determined by: Discussion with filomena valdes/ legal decision maker Care Teams Timber Killer Relationship Specialty Start Date End Date Page Wood PCP - General 04/06/24
--- OUTSIDE RECORDS SUMMARY | 2024-05-18 10:11 | XMS_ITS | Clinical Summary ---
Author Organization [employer] Address [address] [place] [address] Care Team Providers Care Packaging Tech Name Role Phone Page Wood Primary Care Provider Juan Jose narayanan Allergies Active Allergy Reactions Criticality Noted Date [...] Active fluticasone (FLONASE) 50 MCG/ACT nasal spray [place] 1 spray into both nostrils daily Active [...] Date Type Department Care Team Description 05/01/2024 8:48 AM CDT - 05/01/2024 11:59 PM CDT Hospital Encounter [facility] [address] [place] [id number] Deepthi Sanders MD Colon cancer (H) Discharge Disposition: Home or Self Care 05/01/2024 Travel 04/28/2024 Travel from Last 3 Months Social History Tobacco [...] file Travel History Travel Start Travel End [place] 04/19/2024 04/25/2024 Last Filed Vital Signs Vital [...] 05/29/2023 3:00 PM CDT Plan of Treatment Health Maintenance [...] of 3 - 19+ 3-dose series) 01/28/1987 LIPID 2008 ZOSTER IMMUNIZATION (1 of 2) 01/28/2018 COVID-19 Vaccine (3 - 2022- season) 2023 06/27/2021, 06/06/2021 PHQ-2 (once per calendar year) 2023 INFLUENZA VACCINE (#1) 2024 , 07/15/2019, 07/16/2018, Additional history exists PAP 01/24/2026 01/24/2023 GLUCOSE 06/08/2026 06/08/2023, 0802/2023, 06/07/2023, Additional history exists DTAP/TDAP/TD IMMUNIZATION (4 [...] 7 mm. ANDREW PAULINO MD SYSTEM ID: [id number] Narrative 05/01/2024 10:[address] CHEST/ABDOMEN/PELVIS [...] 7 mm. ANDREW PAULINO MD SYSTEM ID: [id number] Deepthi Sanders MD IMG CT ORDERABLE S * Glucose by meter (06/08/2023 7:48 AM CDT) GLUCOSE BY METER POCT 91 70 - 99 mg/dL 06/08/2023 7:55 AM CDT LABORATORY POC Blood, Capillary BLOOD SPECIMEN / Unknown 06/08/2023 7:48 AM CDT 06/08/2023 7:55 AM CDT Deepthi Sanders MD LAB - BEAKER POC T LABORATORY POC [facility] [address] Lab (1st floor, no room number) [place] [address], [facility] [phone] from Last 3 Months or Most Recently Relevant to Health Maintenance Advance Directives For more information, please contact: [phone] * Full Code (Latest Code Status on File) Date Activated Date Inactivated Comments 06/06/2023 2:05 PM 06/08/2023 5:12 PM All basic an d advanced life-sustaining interventions are performed as appropriate Question Answer Comments Code status determined by: Discussion with filomena valdes/ legal decision maker Care Teams Packaging Tech Relationship Specialty Start Date End Date Page Wood PCP - General 04/06/24
--- OUTSIDE RECORDS SUMMARY | 2024-05-18 10:11 | XMS_ITS | Encounter Summary ---
Author Organization [facility] Address [address] [place] [address]. [place] [address] Care Team Providers Care Hearing Impaired Itinerant Teacher Name Role Phone Page Wood Primary Care Provider Juan Jose narayanan Reason for Referral * Diagnostic Imaging CT Scan (Routine) - Closed Specialty Diagnoses / Procedures Referred By Contac t Referred To Contact Radiology. Diagnoses Colon cancer (H) Procedures CT Chest/Abdomen/Pelvis w Contrast Deepthi Sanders MD COLON RECTAL SURGERY [address] [place] [address] Ct Scan [facility] [id number] [place], [place] [address] [address] [place] [address] Referral ID Status Reason Start Date Expiration Date Visits Re quested Visits Authorized [id number] Closed 2024 01/28/2025 1 1 Reason for Visit * Diagnostic Imaging CT Scan (Routine) - Closed Specialty Diagnoses / Procedures Referred By Contac t Referred To Contact Radiology. Diagnoses Colon cancer (H) Procedures CT Chest/Abdomen/Pelvis w Contrast Deepthi Sanders MD COLON RECTAL SURGERY [address] [place] [address] [place] [address] [place] [address] Referral ID Status Reason Start Date Expiration Date Visits Re quested Visits Authorized [id number] Closed 2024 01/28/2025 1 1 Encounter Details Date Type Department Care Team (Latest Contact Info) Description 05/01/2024 8:48 AM CDT - 05/01/2024 11:59 PM CDT Hospital Encounter [facility] [address] [place] [address] Deepthi Sanders MD COLON RECTAL SURGERY [address] [place], [place] [address] Colon cancer (H) Discharge Disposition: Home or Self Care Social History Tobacco Use Types Packs/Day Years [...] Travel Start Travel End [place] 04/19/2024 04/25/2024 documented as of this encounter Medications at Time of Discharge Medication Sig Dispensed Refills Start Date End Date albuterol (PROAIR HFA/PROVENTIL HFA/VENTOLIN HFA) 108 (90 Base) MCG/ACT inhaler Inhale 2 puffs into the lungs every 6 hours as needed 09/19/2022 cetirizine (ZYRTEC) 10 MG tablet Take 10 mg by mouth daily enoxaparin ANTICOAGULANT (LOVENOX) 40 MG/0.4ML syringeIndications:[place] rectal cancer (H) Inject 0.4 mLs (40 mg) Subcutaneous every 24 hours 26 mL 06/09/2023 fluticasone (FLONASE) 50 MCG/ACT nasal spray [place] 1 spray into both nostrils daily levonorgestrel (MIRENA) 52 MG (20 mcg/day) IUD by Intrauterine route once oxyCODONE (ROXICODONE) 5 MG tabletIndications:Color ectal cancer (H) Take 1 tablet (5 mg) by mouth every 6 hours as needed for moderate pain 10 tablet 06/08/2023 documented as of this encounter Plan of Treatment Not on file documented as of this encounter Procedures Procedure Name Priority Date/Time Associated Diagnosis Comments CT CHEST/ABDOMEN/PELVI S W CONTRAST Routine 05/01/2024 9:32 AM CDT Colon cancer (H) documented in this encounter Results * CT Chest/Abdomen/Pelvis w Contrast (05/01/2024 [...] 7 mm. ANDREW PAULINO MD SYSTEM ID: ??[id number] Narrative 05/01/2024 10:[address] CHEST/ABDOMEN/PELVIS [...] 7 mm. ANDREW PAULINO MD SYSTEM ID: [id number] Deepthi Sanders MD IMG CT ORDERABLE S documented in this encounter Visit Diagnoses Diagnosis Colon cancer (H) Malignant neoplasm of colon, unspecified site documented in this encounter Administered Medications Inactive Administered Medications - up to 3 most recent administrations Medication Order MAR Action Action Date Dose Rate Site CT SCAN FLUSH Intravenous, 100 mL, ONCE, On Sat05/01/24 at 0930, For 1 dose, This entry is for use by Radiology to intermittently used as a flush in patients receiving a CT scan. $Given 05/01/2024 9:19 AM CDT 67 mLs iopamidol (ISOVUE-370) solution 500 mL 500 mL, Intravenous, ONCE, On Sat05/01/24 at 0930, For 1 dose $Given 05/01/2024 9:18 AM CDT 97 mLs documented in this encounter Care Teams Hearing Impaired Itinerant Teacher Relationship Specialty Start Date End Date Page Wood PCP - General 04/06/24 documented as of this encounter
[2024-05-19 16:00] LABS: Carcinoembryonic Antigen 1.2 ng/mL (<=3.8)
== END 2024-05-18 10:09 | disposition home or self-care (01) ==
LOC: NPINS 10:08
PROVIDERS: Visit Provider Student in an Organized Health Care Education/Training Program
DX: C18.9 Malignant neoplasm of colon, unspecified (principal)
CPT/HCPCS: 82378

== ENCOUNTER 2025-02-01 15:19 | Outpatient (CLI) | payer OTHER, SELFPAY | END 2025-02-01 15:20 | disposition home or self-care (01) | LOC: NFLDREF 15:21 | PROVIDERS: PCP Registered Nurse; Visit Provider Registered Nurse | DX: K76.0 Fatty (change of) liver, not elsewhere classified (principal) | CPT/HCPCS: 80076 ==

== ENCOUNTER 2025-04-05 07:37 | Outpatient (CLI) | payer OTHER, SELFPAY ==
--- OUTSIDE RECORDS SUMMARY | 2025-04-05 07:44 | XMS_ITS | Clinical Summary ---
Author Organization [employer] Address [address] [place] [address] Care Team Providers Care Director Operations Broadcast Name Role Phone Page Wood Primary Care Provider Juan Jose narayanan Allergies Active Allergy Reactions Criticality Noted Date Comments Adhesive Tape 05/01/2023 Minocycline Palpitations Low 07/01/2007 SOB also Nickel Rash Low 06/06/2023 Oat GI Disturbance 05/01/2023 Sulfa Antibiotics 07/01/2007 eye drops only Thimerosal (Thiomersal) 12/12/2009 Medications levonorgestrel (MIRENA) 52 MG (20 mcg/day) IUD by Intrauterine route once Active cetirizine (ZYRTEC) 10 MG tablet Take 10 mg by mouth daily Active albuterol (PROAIR HFA/PROVENTIL HFA/VENTOLIN HFA) 108 (90 Base) MCG/ACT inhaler Inhale 2 puffs into the lungs every 6 hours as needed 09/19/20 22 Active fluticasone (FLONASE) 50 MCG/ACT nasal spray [place] 1 spray into both nostrils daily Active enoxaparin ANTICOAGULANT (LOVENOX) 40 MG/0.4ML syringeIndication s:Colorectal cancer (H) Inject 0.4 mLs (40 mg) Subcutaneous every 24 hours 26 mL 06/09/20 23 Active oxyCODONE (ROXICODONE) 5 MG tabletIndications :Colorectal cancer (H) Take 1 tablet (5 mg) by mouth every 6 hours as needed for moderate pain 10 tablet 06/08/20 23 Active Active Problems Problem Noted Date Diagnosed Date Colorectal cancer 06/06/2023 Social History Tobacco Use Types Packs/Day Years Used Date Smoking Tobacco: Never Smokeless Tobacco: Never Alcohol Use Standard Drinks/Week Comments Yes 0 (1 standard drink = 0.6 oz pur e alcohol) rare Adolescent Education Answer Date Record ed Getting School Help Needed Not on file 07/06 Comments No Sex and Gender Information Value Date Recorded Sex Assigned at Not on file Legal Sex Female 8:48 AM CDT Gender Identity Not on file Sexual Orientation Not on file Last Filed Vital Signs Vital Sign Reading Time Taken Comments Blood Pressure 118/64 06/08/2023 7:23 AM CDT Pulse 74 06/08/2023 7:23 AM CDT Temperature 37 C (98.6 F) 06/08/2023 7:23 AM CDT Respiratory Rate 16 [...] 1968 FLEX SIG 1968 MAMMO SCREENING 1968 sDNA (Cologuard) 1968 YEARLY PREVENTIVE VISIT 01/28/1971 COLONOSCOPY 01/28/1978 COLORECTAL CANCER SCREENING 01/28/1978 HEPATITIS B VACCINE (1 of 3 - 19+ 3-dose series) 01/28/1987 LIPID 2008 PNEUMOCOCCAL VACCINE 50+ YEARS (1 of 1 - PCV) 01/28/2018 ZOSTER VACCINE (1 of 2) 01/28/2018 COVID-19 VACCINE (3 - 2023- season) 2024 06/27/2021, 06/06/2021 PHQ-2 (once per calendar year) 2024 INFLUENZA VACCINE (Season Ended) 2025 07/11/2022, 07/15/2019, 07/16/2018, Additional history exists PAP 01/24/2026 01/24/2023 DIABETES SCREENING 06/08/2026 06/08/2023, 0 06/07/2023, 06/07/2023, Additional history exists DTAP/TDAP/TD VACCINE (4 - Td or Tdap) 04/18/2031 04/18/2021, 05/19/2009, 10/14/1998, Additional history exists HEPATITIS C SCREENING Completed 04/01/2015 HIV SCREENING Completed 04/01/2015 HPV VACCINE Aged Out No longer eligi ble based on patient's age to complete this topic MENINGITIS VACCINE Aged Out No longer eligible based on patient's age to complete this topic Procedures Procedure Name Priority Date/Time Associated Diagnosis Comments GLUCOSE BY METER Routine 06/08/2023 7:48 AM CDT from Last 3 Months or Most Recently Relevant to Health Maintenance Results * Glucose by meter (06/08/2023 7:48 AM CDT) [facility] Signature GLUCOSE BY METER POCT 91 70 - 99 mg/dL 06/08/2023 7:55 AM CDT LABORATORY POC Blood, Capillary BLOOD SPECIMEN / Unknown 06/08/2023 7:48 AM CDT 06/08/2023 7:55 AM CDT us Deepthi Sanders MD LAB - BEAKER POCT Final Result LABORATORY [facility] [address] [facility] Lab (1st floor, no room number) [place] [address], [facility] [phone] from Last 3 Months or Most Recently Relevant to Health Maintenance Insurance [facility] Advance Directives For more information, please contact: [phone] * Full Code (Latest Code Status on File) Date Activated Date Inactivated Comments 06/06/2023 2:05 PM 06/08/2023 5:12 PM All basic an d advanced life-sustaining interventions are performed as appropriate Question Answer Comments Code status determined by: Discussion with filomena nt/ legal decision maker Care Teams Director Operations Broadcast Relationship Specialty Start Date End Date Page Wood PCP - General 04/06/24
--- OUTSIDE RECORDS SUMMARY | 2025-04-05 07:44 | XMS_ITS | Clinical Summary ---
Author Organization [employer] [facility] Address [address] [place] [address] Care Team Providers Care Presiding Judge Name Role Phone Unavailable Primary Care Provider [...] Resolved Date Unspecified high-risk 06/18/2008 06/15/2010 Immunizations Immunization Administration Dates Next Due AMB Influenza, IIV4 PF (=>6 mos Flulaval,Fluzone Fluarix)(Flu Clinic Only) 07/30/2014 Hepatitis A (Adult) 11/07/2011 Influenza, IIV3 (Age >=3 years) 07/10/2013,09/08,07/19/2009 MMR 04/17/1990 Td (Age >=7 Years) 10/14/1998,04/17/1990 Tdap 05/19/2009 Family History Medical History Relation Name Comments Other Brother 2 with Hx: Etoh ism Good Health Father b 1936 Heart Disease Maternal Grandfather [place] Psychiatric illness Maternal Grandfather bipolar Arthritis Maternal Grandmother rheumat oid Other Maternal Grandmother hypothy roid Heart Disease Mother stents Hypertension Mother b 1941 Psychiatric illness Mother depressi on Cancer-colon Paternal Grandmother Hypertension Paternal Uncle d 40 yo [place] Other Sister eye disease Cancer-breast No Family History Relation Name Status Comments Brother Father Maternal Grandfather Maternal Grandmother Mother Paternal Grandmother Paternal Uncle Sister Social History Tobacco Use Types Packs/Day Years Used Date Smoking Tobacco: Never Smokeless Tobacco: Never Tobacco Cessation:Counseling Given: Yes Alcohol Use Standard Drinks/Week Comments Yes 0.8 (1 standard drink = 0.6 oz p ure alcohol) occasionall Comments No Sex and Gender Information Value Date Recorded Sex Assigned at Not on file 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 Gender Identity Not on file Sexual Orientation Not on file 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 Not on file Not on file Obstetrics History Para Term [...] 87 07/02/2017 1:00 PM CDT Temperature 36.7 C (98 F) 04/26/2016 4:39 PM CDT Respiratory Rate 27 [...] Health Maintenance Due Date Last Done Comments Hepatitis B series for 19+ ( 1 of 3 - 19+ 3-dose series) 01/28/1987 Colonoscopy through age 75 01/28/2013 Depression screening for age 12+ 01/16/2017 01/17/20 16 BMI (ht and wt on same day) for age 18+ 04/26/2017 04/26/2016, 01/17/2016 Pneumococcal series for age 50+ (1 of 1 - PCV) 01/28/2018 Zoster (shingles) series for age 50+ (1 of 2) 01/28/2018 Tetanus booster 05/19/2019 05/19/2009, 10/1998, 04/17/1990 Mammogram for age 45-75 07/15/2020 07/15/20 19, 06/04/2018, 04/02/2017, Additional history exists Lipids for age 45-75 01/16/2021 01/17/2016, 06/16/20 10 COVID-19 vaccine series (2023- season) 2024 Influenza Vaccine (Season Ended) 2025 07/30/2014, 07/10/2013, 09/08/2012, Additional history exists Pap test for age 21-65 01/24/2026 , 01/24/2023, 07/01/2018, Additional history exists Tdap Completed 05/19/2009 HIV for age 15-65 Completed 04/01/2015, , 05/06/2008 Hepatitis C screening for ag e 18-79 Completed 04/01/2015, 11/22/2014 Procedures Procedure Name Priority Date/Time Associated Diagnosis Comments HPV HIGH RISK Routine 01/24/2023 12:00 PM CDT SCAN-MAMMOGRAPHY REPORT [...] Negative Negative 01/28/2023 1:45 PM CDT [facility] TRAL LABORATORY TYPE 18 Negative Negative 01/28/2023 1:45 PM CDT [facility] TRAL LABORATORY OTHER HIGH RISK TYPES Negative Negative 01/28/2023 1:45 PM CDT [facility] TRAL LABORATORY Other (Cervical) 01/24/2023 12:00 PM CDT 01/25/2023 10:17 AM CDT Narrative [facility] - 01/28/2023 1:45 PM CDT HPV types 16, 18, 31, 33, 35, 39, 45, 51, 52, 56, 58, 59, 66 and 68 DNA were undetectable or below the pre-set threshold. Methodology: Gwyn Theresa 4800 HPV Test us Bailee L Ellie ABDALLA MICROBIOLOGY Final Resu lt [facility] [address] [place] [address], [place] * SCAN-MAMMOGRAPHY REPORT (07/15/2019 12:00 AM CDT) Anatomical Region Laterality Modality Other us Scanner OTHER Final Result * LIPID PANEL W REFLEX MEASURED LDL (01/17/2016 10:57 AM CDT) CHOLESTEROL,TOTAL 187 100 - 199 mg/dL 01/17/2016 11:24 AM CDT [facility] TRIGLYCERIDES 97 <150 mg/dL 01/17/2016 11:24 AM CDT [facility] HDL CHOLESTEROL 56 >40 mg/dL 01/17/2016 11:24 AM CDT [facility] NON-HDL CHOLESTEROL 131 <145 mg/dl 01/17/2016 11:24 AM CDT [facility] CHOL/HDL RATIO 3.34 <4.50 01/17/2016 11:24 AM CDT [facility] LDL CHOLESTEROL 112 <=130 mg/dL 01/17/2016 11:24 AM CDT [facility] PATIENT STATUS NON-FASTI NG 01/17/2016 11:24 AM CDT [facility] Blood specimen (specimen) BLOOD SPECIMEN / Unknown Venipuncture / Unknown 01/17/2016 10:57 AM CDT 01/17/2016 10:57 AM CDT Ayden Floyd MD CHEMISTRY Final Re sult [facility] [address] [place] [address], * ANTI HCV (04/01/2015 9:48 AM CDT) HEPATITIS C ANTIBODY Non-Reacti ve Non-Reacti ve 04/01/2015 4:25 PM CDT [facility] TRAL LABORATORY Blood specimen (specimen) BLOOD SPECIMEN / Unknown Venipuncture / Unknown 04/01/2015 9:48 AM CDT 04/01/2015 9:48 AM CDT Narrative [facility] - 04/01/2015 4:25 PM CDT Antibodies to HCV not detected; does not exclude the possibility of exposure to HCV. Ayden Floyd MD SEND OUTS Final Re sult Performing Organization Address [facility]/ZIP Co de Phone Number [facility] [address] [place] [address], [place] * ANTI HIV 1/2 (04/01/2015 9:48 AM CDT) Pathologist [facility] HIV-1/HIV-2 ANTIBODY Non-Reacti ve Non-Reacti ve 04/01/2015 4:25 PM CDT [facility] TRAL LABORATORY Blood specimen (specimen) BLOOD SPECIMEN / Unknown Venipuncture / Unknown 04/01/2015 9:48 AM CDT 04/01/2015 9:48 AM CDT Narrative [facility] - 04/01/2015 4:25 PM CDT HIV-1 p24 and HIV-1/HIV-2 Ab not detected Ayden Floyd MD SEND OUTS Final Re sult [facility] [address] [place] [address], from Last 3 Months or Most Recently Relevant to Health Maintenance Insurance [employer]
--- OUTSIDE RECORDS SUMMARY | 2025-04-05 07:44 | XMS_ITS | CCD ---
Author Name Interface, [id number] Address [address] [address] Organization [facility] Address [address] [place] [address] Care Team Providers Care Food Service Aide Name Role Phone Nicolás ECHAVARRIA, Teddy Blanca Unavailable Allergies and Adverse Reactions Medication/Group Name Reaction Severity Date Adhesive tape 08/09/2023 sulfalene 08/09/2023 thimerosal 08/09/2023 oats 08/09/2023 cat dander 08/09/2023 tetracycline 08/09/2023 minocycline 08/09/2023 Reason for Visit OV 20 MIN Functional Status Date Name Score 05/01/2023 ECOG performance status - grade 0 0 Medications Date Name Route Dose Frequency Instructions Start Date End Date Status Acetaminophen Oral PRN active Ibuprofen Oral @HS ac tive Ibuprofen Oral PRN st opped Enoxaparin Subcutaneous daily inactiv e Fluticasone Nasal [place] 50 mcg/actuation HS active Cetirizine Oral @HS a ctive Problems Diagnosis Status Date of Diagnosis Resolution Date Participant in a clinical trial Active Primary malignant neoplasm o f colon (disorder) Active Multiple pulmonary nodules Active Fatty liver Active Social History Date Name Value 08/09/2023 Sex Female
--- OUTSIDE RECORDS SUMMARY | 2025-04-05 07:44 | XMS_ITS ---
Author Name Interface, [id number] lity Address [address] [facility] [address] [place] [address] [facility] Address [address] [place] [address] Allergies and Adverse Reactions Medication/Group Name Reaction Severity Date Adhesive tape 08/09/2023 sulfalene 08/09/2023 minocycline 08/09/2023 thimerosal 08/09/2023 oats 08/09/2023 cat dander 08/09/2023 tetracycline 08/09/2023 Plan Date Type Value 08/09/2023 APPOINTMENT OV 20 MIN Reason for Visit OV 20 MIN Encounters Date Name 08/09/2023 Fatty liver 08/09/2023 Multiple pulmonary n odules 08/09/2023 Primary malignant ne oplasm of colon (disorder) Medications Date Name Route Dose Frequency Instructions Start Date End Date Status Fluticasone Nasal [place] 50 mcg/actuation HS active Cetirizine Oral @HS a ctive Acetaminophen Oral PRN active Ibuprofen Oral @HS ac tive Problems Diagnosis Status Date of Diagnosis Resolution Date Participant in a clinical trial Active Primary malignant neoplasm o f colon (disorder) Active Multiple pulmonary nodules Active Fatty liver Active Vital Signs Date Type Value 08/09/2023 Body Temperature 97.90 08/09/2023 Heart Beat 72.00 08/09/2023 Respiratory Rate 16.00 08/09/2023 Oxygen Saturation 98.00 08/09/2023 BSA 1.98 08/09/2023 Pain Scale 0.00 08/09/2023 Weight 209.80 08/09/2023 Height 63.50 08/09/2023 BMI 36.58 08/09/2023 Intravascular Systolic 118 08/09/2023 Intravascular Diastolic 78 Notes Section * Med Onc Follow-up Note Patient Name: GILMA BASS? Date Of : 1970? Today's Provider:?Teddy Monzon MD Date of Service:?08/09/2023? 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 Sigmoid versus rectal cancer, CEA at 1.1, final pathology of sigmoid colon and upper rectum ?Final pathology pT1??N0 M0,??16 lymph nodes removed were negative ??? MMR proficient ??? Plan NCCN guidelines??no further surveillance ??? Colonoscopy due??year 1 2.?? Pulmonary nodules, now thought to be benign ??? Too small to biopsy ?Indeterminate??but not highly suspicious ?Imaging x2 did show stable 3.?? Minimal rectal bleeding ?Hemoglobin is stable Plan 1.?Colonoscopy at year 1 with colorectal surgery 2. ??No scans or markers from??colon cancer standpoint, stage I discharge from oncological care 3. ??Pulm nodules now thought to be benign with imaging x2, non-smoker 4. ??Fatty liver??we are working on weight loss and healthy lifestyle Advanced Care Planning Not discussed at this visit. Pain Scale on Today's Visit 0 Pain Plan on Today's Visit No pain plan indicated for today's visit Smoking Status Smoking Tobacco : Never smoker; Smokeless Tobacco : Never used smokeless tobacco; Vaping : Never vaped Depression Screening Tool Status Was screened; Outcome positive: No; Screening Date: 08/09/2023; Screening Tool: PRIME MD-PHQ2; Total depression score: 0 History of Present Illness 53-year-old female 1. ??2023: Patient had ultrasound done for elevated LFTs??that shows diffuse fatty infiltration of the liver 2.?? 04/08/2023: Patient had??colonoscopy??this was screening along with scant rectal bleed done??that showed??a polypoid and submucosal partially obstructing large mass was found in the rectum.?? This was not circumferential and measured 5 cm in length.?? This was biopsied. 3.?? 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 DNA mismatch repair enzymes??intact nuclear expression 4.?? 04/12/2023: CT scan of chest abdomen pelvis??shows hepatic steatosis, 8 mm left lower lobe pulmnodule metastatic disease cannot be excluded 5.?? 04/12/2023: [facility] MRI ?Fibroid was noted in the left upper uterine body ??? No adnexal pathology ??? Negative MRI of the pelvis??without intravenous contrast 6. 03/20/1723: PET CT scan images personally reviewed ?Hypermetabolic focus of??the proximal rectum versus rectosigmoid, SUV of 39.99 ?3. ??5 mm??perirectal nodes below the size threshold for PET CT scan characterization??attention follow-up ?Pulm nodule??no suspicious FDG uptake in the chest ??? Non-FDG avid 0.6 left??upper lobe subpleural nodule??too small to biopsy 7.?? 05/01/2023: Reviewed with radiology and Dr. Sanders, agreement with proceeding with flex sig, surgery 8.?? 06/06/2023:??Robotic anterior resection ??? Sigmoid colon upper:??Rectum??with anastomotic ring, robotic anterior: Resection ??? Invasive adenocarcinoma ??? Moderately??differentiated ??? Grade 2 ??? PT1N0 ??? 19 lymph nodes removed and negative 9.?? 07/24/2023:??CT scan??of chest abdomen pelvis??no evidence of metastatic disease in chest and pelvis, pulmonary findings unchanged since??04/12/2023 and likely benign, pulm nodule??along the right minor fissure consistent with a benign intramammary lymph node Interval History Clinically doing well denies any nausea vomiting, headache, blurry vision,??chest pain, shortness of breath recovered well from surgery happy with where things are.?? Things is gradually getting backto normal she has been getting fatigue to her work. Review of Systems Remaining 14 point comprehensive review of systems within normal limits. NCCN Distress Thermometer and Problem List were collected and documented in the patient chart.?? Remarkable symptoms and concerns were discussed with the patient.?? Any additional follow-up is indicated in the plan. Past Medical and Surgical History Eczema High cholesterol IBS Sleep Apnea Current Medications Medication List Name Date Flonase Allergy Relief (Fluticasone Nasa l [place] 50 mcg/actuation) 05/01/2023 Ibuprofen Oral 08/09/2023 Zyrtec (Cetirizine Oral) 08/09/2023 Tylenol (Acetaminophen Oral) 06/19/2023 Allergies Adhesive tape, cat dander, minocycline, oats, sulfalene, tetracycline and thimerosal Family History Paternal Grandmother ??? Stomach Cancer Paternal Cousin - Leukemia?? 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 ??She does not smoke, does not drink.?? She lives at her home??with her spouse and a 14-year-old.?? She has 2 children Scout age 14 and Oswald age 27.?? 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 Her son Oswald??is an telecommunications field engineer at [employer], lives in [place].?? Luke??is actively involved in sports. 08/09/2023: As a freshman, wrestling season will start soon Vital Signs Blood pressure: 118/78, Pulse: 72, Temperature: 97.9 F, Respirations: 16, O2 sat: 98%, Pain Scale: 0, Height: 63.5 in, Weight: 209.8 lb, BSA: 1.98, BMI: 36.58 kg/m2 Covid-19 vaccine ([employer]) (05/01/2023), Elsewhere; Covid-19 vaccine ([employer]) (05/01/2023), Elsewhere; Flu vaccine - Adult (05/01/2023), Elsewhere Performance Status ECOG or Karnofsky ECO Normal activity. Fully active, able to carry on all pre-disease performance without restriction. (Date: 05/01/2023) Karnofsky:?Not recorded Physical Exam Limited head, face, neck no abnormalities Genetics/Molecular/Biomarkers ? Additional Labs, Imaging, and Other Studies Lab Results CBC Lab Results 06/06/2023 05/01/2023 04/12/2023 CBC WBC x 10^3/uL 6.3 RBC x 10^6/uL 4.42 NRBC % /100 wbc 0.0 HGB g/dL 15.1 HCT % 42.5 MCV fL 96.2 MCH pg 34.2 MCHC g/dL 35.5 (H) RDW % 12.30 PLT x 10^3/uL 276 MPV fL 9.6 Frederic % 63.0 LY % 27.0 MO % 7.4 EO % 1.7 IG % 0.3 Frederic # (ANC) x 10^3/uL 4.0 BA % 0.6 MO # x 10^3/uL 0.5 EO # x 10^3/uL 0.1 BA # x 10^3/uL 0.0 IG # x 10^3/uL 0.02 LY # x 10^3/uL 1.7 Chemistries Lab Results 06/06/2023 05/01/2023 04/12/2023 Chemistries Glucose mg/dL 75 BUN mg/dL 14.0 Creatinine mg/dL 0.80 Sodium mmol/L 143 Potassium mmol/L 4.6 Chloride mmol/L 108 CO2 mmol/L 26 Calcium mg/dL 10.0 Albumin g/dL 4.8 Total protein g/dL 7.4 Bilirubin, total mg/dL 0.6 Alkaline phosphatase U/L 100 AST/SGOT U/L 32 ALT/SGPT U/L 55 (H) GFR estimate mL/min/1.73m2 86.8 ? Lab Results 06/06/2023 05/01/2023 04/12/2023 Anemia Labs Iron ug/dL 88 TIBC ug/dL 311 Ferritin ng/mL 130.40 (H) Unbound iron capacity ug/dL 223 Iron, % saturation % 28 Surveys/Consents/Other Discussions Teddy Monzon MD CC: ? Electronically signed by Teddy Monzon MD 08/09/2023 15:09 CDT
--- NOTE | 2025-04-05 07:45 | CRLHL7_ITS ---
For Patients: As a result of the Century Cures Act, medical imaging exams and procedure reports are released immediately into your electronic medical record. You may view this report before your referring provider. If you have questions, please contact your health care provider. INDICATION: BILATERAL SCREENING MAMMOGRAM, ASYMPTOMATIC 55 Y/O FEMALE COMPARISON: 01/03/2024, 12/24/2022, 06/12/2021 TECHNIQUE: Digital mammogram in CC and MLO projections including computer-aided detection (CAD) and tomosynthesis. BREAST COMPOSITION: There are scattered areas of fibroglandular density. FINDINGS: No suspicious findings. ASSESSMENT: BI-RADS 1 Negative RECOMMENDATION: Annual screening mammogram. A lay language report of this examination will be provided to the patient. Dictated by: Jake Harper MD @ 04/05/2025 10:57:34 (Electronically Signed)
--- OUTSIDE RECORDS SUMMARY | 2025-04-05 07:46 | XMS_ITS ---
Author Name Interface, [id number] lity Address [address] [place] [address] [facility] Address [address] [place] [address] Allergies and Adverse Reactions Medication/Group Name Reaction Severity Date Adhesive tape 08/09/2023 sulfalene 08/09/2023 thimerosal 08/09/2023 oats 08/09/2023 cat dander 08/09/2023 tetracycline 08/09/2023 minocycline 08/09/2023 Plan Date Type Value 08/09/2023 APPOINTMENT OV 20 MIN Reason for Visit OV 20 MIN Encounters Date Name 08/09/2023 Fatty liver 08/09/2023 Multiple pulmonary n odules 08/09/2023 Primary malignant ne oplasm of colon (disorder) Medications Date Name Route Dose Frequency Instructions Start Date End Date Status Fluticasone Nasal [place] 50 mcg/actuation HS active Cetirizine Oral @HS [...] metastatic disease cannot be excluded 5.?? 04/12/2023: [facility] MRI ?Fibroid was noted in the left [...] Date Flonase Allergy Relief (Fluticasone Nasa l [place] 50 mcg/actuation) 05/01/2023 Ibuprofen Oral 08/09/2023 Zyrtec (Cetirizine Oral) 08/09/2023 Tylenol (Acetaminophen Oral) 06/19/2023 Allergies Adhesive tape, cat dander, minocycline, oats, sulfalene, tetracycline and thimerosal Family History Paternal Grandmother ??? Stomach Cancer Paternal Cousin - Leukemia?? 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 ??She does not smoke, does not drink.?? She lives at her home??with her spouse and a 14-year-old.?? She has 2 children Scout age 14 and Oswald age 27.?? 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 Her son Oswald??is an engineer technical staff at [employer], lives in [place].?? Luke??is actively involved in sports. 08/09/2023: As a freshman, wrestling season will start soon Vital Signs Blood pressure: 118/78, Pulse: 72, Temperature: 97.9 F, Respirations: 16, O2 sat: 98%, Pain Scale: 0, Height: 63.5 in, Weight: 209.8 lb, BSA: 1.98, BMI: 36.58 kg/m2 Covid-19 vaccine ([employer]) (05/01/2023), Elsewhere; Covid-19 vaccine ([employer]) (05/01/2023), Elsewhere; Flu vaccine - Adult (05/01/2023), [...]
--- OUTSIDE RECORDS SUMMARY | 2025-04-05 07:46 | XMS_ITS | CCD ---
Author Name Interface, [id number] lity Address [address] [facility] [address] [address] Organization [facility] Address [address] [facility] [address] [place] [address] Care Team Providers Care Cigar Bander Hand Name Role Phone Nicolás ECHAVARRIA, Teddy Blanca Unavailable Allergies and Adverse Reactions Medication/Group Name Reaction Severity Date Adhesive tape 08/09/2023 sulfalene 08/09/2023 thimerosal 08/09/2023 oats 08/09/2023 cat dander 08/09/2023 minocycline 08/09/2023 tetracycline 08/09/2023 Reason for Visit OV 20 MIN Functional Status Date Name Score 05/01/2023 ECOG performance status - grade 0 0 Medications Date Name Route Dose Frequency Instructions Start Date End Date Status Acetaminophen Oral PRN active Ibuprofen Oral @HS ac tive Ibuprofen Oral PRN st opped Enoxaparin Subcutaneous daily inactiv e Fluticasone Nasal [place] 50 mcg/actuation HS active Cetirizine Oral @HS a ctive Problems Diagnosis Status Date of Diagnosis Resolution Date Participant in a clinical trial Active Primary malignant neoplasm o f colon (disorder) Active Multiple pulmonary nodules Active Fatty liver Active Social History Date Name Value 08/09/2023 Sex Female
--- OUTSIDE RECORDS SUMMARY | 2025-04-05 07:46 | XMS_ITS ---
Author Name Interface, [id number] lity Address [address] [facility] [address] [place] [address] [facility] Address [address] [facility] [address] [place] [address] Allergies and Adverse Reactions Medication/Group Name Reaction [...] Start Date End Date Status Fluticasone Nasal [place] 50 mcg/actuation HS active Cetirizine Oral @HS [...] metastatic disease cannot be excluded 5.?? 04/12/2023: [facility] MRI ?Fibroid was noted in the [...] Date Flonase Allergy Relief (Fluticasone Nasa l [place] 50 mcg/actuation) 05/01/2023 Ibuprofen Oral 08/09/2023 Zyrtec (Cetirizine Oral) 08/09/2023 Tylenol (Acetaminophen Oral) 06/19/2023 Allergies Adhesive tape, cat dander, minocycline, oats, sulfalene, tetracycline and thimerosal Family History Paternal Grandmother ??? Stomach Cancer Paternal Cousin - Leukemia?? 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 ??She does not smoke, does not drink.?? She lives at her home??with her spouse and a 14-year-old.?? She has 2 children Scout age 14 and Oswald age 27.?? 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 Her son Oswald??is an manufacturing support engineer at [employer], lives in [place].?? Luke??is actively involved in sports. 08/09/2023: As a freshman, wrestling season will start soon Vital Signs Blood pressure: 118/78, Pulse: 72, Temperature: 97.9 F, Respirations: 16, O2 sat: 98%, Pain Scale: 0, Height: 63.5 in, Weight: 209.8 lb, BSA: 1.98, BMI: 36.58 kg/m2 Covid-19 vaccine ([employer]) (05/01/2023), Elsewhere; Covid-19 vaccine ([employer]) (05/01/2023), Elsewhere; Flu vaccine - Adult (05/01/2023), [...]
--- OUTSIDE RECORDS SUMMARY | 2025-04-05 07:46 | XMS_ITS | CCD ---
Author Name Interface, [id number] lity Address [address] [facility] [address] [address] Organization [facility] Address [address] [facility] [address] [place] [address] Care Team Providers Care Stopper Setter Name Role Phone Nicolás ECHAVARRIA, Teddy Blanca [...] Enoxaparin Subcutaneous daily inactiv e Fluticasone Nasal [place] 50 mcg/actuation HS active Cetirizine Oral @HS a ctive Problems Diagnosis Status Date of Diagnosis Resolution Date Participant in a clinical trial Active Primary malignant neoplasm o f colon (disorder) Active Multiple pulmonary nodules Active Fatty liver Active Social History Date Name Value 08/09/2023 Sex Female
--- OUTSIDE RECORDS SUMMARY | 2025-04-05 07:47 | XMS_ITS | CCD ---
Author Name Interface, [id number] lity Address [address] [facility] [address] [address] Organization [facility] Address [address] [facility] [address] [place] [address] Care Team Providers Care Multimedia Developer Name Role Phone Nicolás ECHAVARRIA, Teddy Blanca [...] Enoxaparin Subcutaneous daily inactiv e Fluticasone Nasal [place] 50 mcg/actuation HS active Cetirizine Oral @HS a ctive Problems Diagnosis Status Date of Diagnosis Resolution Date Participant in a clinical trial Active Primary malignant neoplasm o f colon (disorder) Active Multiple pulmonary nodules Active Fatty liver Active Social History Date Name Value 08/09/2023 Sex Female
--- OUTSIDE RECORDS SUMMARY | 2025-04-05 07:47 | XMS_ITS | CCD ---
Author Name Interface, [id number] lity Address [address] [facility] [address] [address] Organization [facility] Address [address] [facility] [address] [place] [address] Care Team Providers Care Brazer Induction Name Role Phone Nicolás ECHAVARRIA, Teddy Blanca [...] Enoxaparin Subcutaneous daily inactiv e Fluticasone Nasal [place] 50 mcg/actuation HS active Cetirizine Oral @HS a ctive Problems Diagnosis Status Date of Diagnosis Resolution Date Participant in a clinical trial Active Primary malignant neoplasm o f colon (disorder) Active Multiple pulmonary nodules Active Fatty liver Active Social History Date Name Value 08/09/2023 Sex Female
--- OUTSIDE RECORDS SUMMARY | 2025-04-05 07:47 | XMS_ITS ---
Author Name Interface, [id number] lity Address [address] [facility] [address] [place] [address] [facility] Address [address] [facility] [address] [place] [address] Allergies and Adverse Reactions Medication/Group Name Reaction [...] Start Date End Date Status Fluticasone Nasal [place] 50 mcg/actuation HS active Cetirizine Oral @HS [...] metastatic disease cannot be excluded 5.?? 04/12/2023: [facility] MRI ?Fibroid was noted in the [...] Date Flonase Allergy Relief (Fluticasone Nasa l [place] 50 mcg/actuation) 05/01/2023 Ibuprofen Oral 08/09/2023 Zyrtec (Cetirizine Oral) 08/09/2023 Tylenol (Acetaminophen Oral) 06/19/2023 Allergies Adhesive tape, cat dander, minocycline, oats, sulfalene, tetracycline and thimerosal Family History Paternal Grandmother ??? Stomach Cancer Paternal Cousin - Leukemia?? 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 ??She does not smoke, does not drink.?? She lives at her home??with her spouse and a 14-year-old.?? She has 2 children Scout age 14 and Oswald age 27.?? 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 Her son Oswald??is an station engineer chief at [employer], lives in [place].?? Luke??is actively involved in sports. 08/09/2023: As a freshman, wrestling season will start soon Vital Signs Blood pressure: 118/78, Pulse: 72, Temperature: 97.9 F, Respirations: 16, O2 sat: 98%, Pain Scale: 0, Height: 63.5 in, Weight: 209.8 lb, BSA: 1.98, BMI: 36.58 kg/m2 Covid-19 vaccine ([employer]) (05/01/2023), Elsewhere; Covid-19 vaccine ([employer]) (05/01/2023), Elsewhere; Flu vaccine - Adult (05/01/2023), [...]
--- OUTSIDE RECORDS SUMMARY | 2025-04-05 07:47 | XMS_ITS ---
Author Name Interface, [id number] lity Address [address] [facility] [address] [place] [address] [facility] Address [address] [facility] [address] [place] [address] Allergies and Adverse Reactions Medication/Group Name Reaction [...] Start Date End Date Status Fluticasone Nasal [place] 50 mcg/actuation HS active Cetirizine Oral @HS [...] metastatic disease cannot be excluded 5.?? 04/12/2023: [facility] MRI ?Fibroid was noted in [...] Date Flonase Allergy Relief (Fluticasone Nasa l [place] 50 mcg/actuation) 05/01/2023 Ibuprofen Oral 08/09/2023 Zyrtec (Cetirizine Oral) 08/09/2023 Tylenol (Acetaminophen Oral) 06/19/2023 Allergies Adhesive tape, cat dander, minocycline, oats, sulfalene, tetracycline and thimerosal Family History Paternal Grandmother ??? Stomach Cancer Paternal Cousin - Leukemia?? 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 ??She does not smoke, does not drink.?? She lives at her home??with her spouse and a 14-year-old.?? She has 2 children Scout age 14 and Oswald age 27.?? 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 Her son Oswald??is an electronics hardware design engineer at [employer], lives in [place].?? Luke??is actively involved in sports. 08/09/2023: As a freshman, wrestling season will start soon Vital Signs Blood pressure: 118/78, Pulse: 72, Temperature: 97.9 F, Respirations: 16, O2 sat: 98%, Pain Scale: 0, Height: 63.5 in, Weight: 209.8 lb, BSA: 1.98, BMI: 36.58 kg/m2 Covid-19 vaccine ([employer]) (05/01/2023), Elsewhere; Covid-19 vaccine ([employer]) (05/01/2023), Elsewhere; Flu vaccine - Adult (05/01/2023), [...]
--- OUTSIDE RECORDS SUMMARY | 2025-04-05 07:48 | XMS_ITS | CCD ---
Author Name Interface, [id number] lity Address [address] [facility] [address] [address] Organization [facility] Address [address] [facility] [address] [place] [address] Care Team Providers Care Pharmacy Ancillary Name Role Phone Nicolás ECHAVARRIA, Teddy Blanca [...] Enoxaparin Subcutaneous daily inactiv e Fluticasone Nasal [place] 50 mcg/actuation HS active Cetirizine Oral @HS a ctive Problems Diagnosis Status Date of Diagnosis Resolution Date Participant in a clinical trial Active Primary malignant neoplasm o f colon (disorder) Active Multiple pulmonary nodules Active Fatty liver Active Social History Date Name Value 08/09/2023 Sex Female
--- OUTSIDE RECORDS SUMMARY | 2025-04-05 07:48 | XMS_ITS ---
Author Name Interface, [id number] lity Address [address] [facility] [address] [place] [address] [facility] Address [address] [facility] [address] [place] [address] Allergies and Adverse Reactions Medication/Group Name Reaction [...] Start Date End Date Status Fluticasone Nasal [place] 50 mcg/actuation HS active Cetirizine Oral @HS [...] metastatic disease cannot be excluded 5.?? 04/12/2023: [facility] MRI ?Fibroid was noted in the [...] Date Flonase Allergy Relief (Fluticasone Nasa l [place] 50 mcg/actuation) 05/01/2023 Ibuprofen Oral 08/09/2023 Zyrtec (Cetirizine Oral) 08/09/2023 Tylenol (Acetaminophen Oral) 06/19/2023 Allergies Adhesive tape, cat dander, minocycline, oats, sulfalene, tetracycline and thimerosal Family History Paternal Grandmother ??? Stomach Cancer Paternal Cousin - Leukemia?? 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 ??She does not smoke, does not drink.?? She lives at her home??with her spouse and a 14-year-old.?? She has 2 children Scout age 14 and Oswald age 27.?? 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 Her son Oswald??is an glass science engineer at [employer], lives in [place].?? Luke??is actively involved in sports. 08/09/2023: As a freshman, wrestling season will start soon Vital Signs Blood pressure: 118/78, Pulse: 72, Temperature: 97.9 F, Respirations: 16, O2 sat: 98%, Pain Scale: 0, Height: 63.5 in, Weight: 209.8 lb, BSA: 1.98, BMI: 36.58 kg/m2 Covid-19 vaccine ([employer]) (05/01/2023), Elsewhere; Covid-19 vaccine ([employer]) (05/01/2023), Elsewhere; Flu vaccine - Adult (05/01/2023), [...]
--- OUTSIDE RECORDS SUMMARY | 2025-04-05 07:48 | XMS_ITS ---
Author Name Interface, [id number] lity Address [address] [facility] [address] [place] [address] [facility] Address [address] [facility] [address] [place] [address] Allergies and Adverse Reactions Medication/Group Name Reaction [...] Start Date End Date Status Fluticasone Nasal [place] 50 mcg/actuation HS active Cetirizine Oral @HS [...] metastatic disease cannot be excluded 5.?? 04/12/2023: [facility] MRI ?Fibroid was noted in [...] Date Flonase Allergy Relief (Fluticasone Nasa l [place] 50 mcg/actuation) 05/01/2023 Ibuprofen Oral 08/09/2023 Zyrtec (Cetirizine Oral) 08/09/2023 Tylenol (Acetaminophen Oral) 06/19/2023 Allergies Adhesive tape, cat dander, minocycline, oats, sulfalene, tetracycline and thimerosal Family History Paternal Grandmother ??? Stomach Cancer Paternal Cousin - Leukemia?? 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 ??She does not smoke, does not drink.?? She lives at her home??with her spouse and a 14-year-old.?? She has 2 children Scout age 14 and Oswald age 27.?? 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 Her son Oswald??is an engineering mathematician at [employer], lives in [place].?? Luke??is actively involved in sports. 08/09/2023: As a freshman, wrestling season will start soon Vital Signs Blood pressure: 118/78, Pulse: 72, Temperature: 97.9 F, Respirations: 16, O2 sat: 98%, Pain Scale: 0, Height: 63.5 in, Weight: 209.8 lb, BSA: 1.98, BMI: 36.58 kg/m2 Covid-19 vaccine ([employer]) (05/01/2023), Elsewhere; Covid-19 vaccine ([employer]) (05/01/2023), Elsewhere; Flu vaccine - Adult (05/01/2023), [...]
--- OUTSIDE RECORDS SUMMARY | 2025-04-05 07:48 | XMS_ITS | CCD ---
Author Name Interface, [id number] lity Address [address] [facility] [address] [address] Organization [facility] Address [address] [facility] [address] [place] [address] Care Team Providers Care Benefits Consulting Analyst Name Role Phone Nicolás ECHAVARRIA, Teddy Blanca [...] Enoxaparin Subcutaneous daily inactiv e Fluticasone Nasal [place] 50 mcg/actuation HS active Cetirizine Oral @HS a ctive Problems Diagnosis Status Date of Diagnosis Resolution Date Participant in a clinical trial Active Primary malignant neoplasm o f colon (disorder) Active Multiple pulmonary nodules Active Fatty liver Active Social History Date Name Value 08/09/2023 Sex Female
--- OUTSIDE RECORDS SUMMARY | 2025-04-06 00:48 | XMS_ITS ---
Author Name Interface, [id number] lity Address [address] [place], [place] [id number] [facility] Address [facility] [place] [address] Allergies and Adverse Reactions Plan Reason for Visit Encounters Medications Problems Vital Signs Notes Section
--- OUTSIDE RECORDS SUMMARY | 2025-04-06 00:49 | XMS_ITS | Clinical Summary ---
Author Organization [place] Address [address] [place] [id number] Care Team Providers Care Computer Typesetter Name Role Phone Page Wood Primary Care [...] Active fluticasone (FLONASE) 50 MCG/ACT nasal spray [place] 1 spray into both nostrils daily Active [...] Glucose by meter (06/08/2023 7:48 AM CDT) [facility] Signature GLUCOSE BY METER POCT 91 70 - 99 mg/dL 06/08/2023 7:55 AM CDT LABORATORY POC Blood, Capillary BLOOD SPECIMEN / Unknown 06/08/2023 7:48 AM CDT 06/08/2023 7:55 AM CDT us Deepthi Sanders MD LAB - BEAKER POCT Final Result LABORATORY [facility] Acute Care Lab [address] [facility] Lab (1st floor, no room number) [place] [address], [facility] [phone] from Last 3 Months or Most Recently Relevant to Health Maintenance Insurance [facility] Advance Directives For more information, please contact: [phone] * Full Code (Latest Code Status on File) Date Activated Date Inactivated Comments 06/06/2023 2:05 PM 06/08/2023 5:12 PM All basic an d advanced life-sustaining interventions are performed as appropriate Question Answer Comments Code status determined by: Discussion with filomena nt/ legal decision maker Care Teams Computer Typesetter Relationship Specialty Start Date End Date Page Wood PCP - General 04/06/24
--- OUTSIDE RECORDS SUMMARY | 2025-04-06 00:49 | XMS_ITS ---
Author Name Interface, [id number] lity Address [address] [place], [place] [id number] [facility] Address [facility] [place] [address] Allergies and Adverse Reactions Plan Reason for Visit Encounters Medications Problems Vital Signs Notes Section
--- OUTSIDE RECORDS SUMMARY | 2025-04-06 00:50 | XMS_ITS | CCD ---
Author Name Interface, [id number] lity Address [facility] [address] [place] [id number] Organization [facility] Address [address] [address] Care Team Providers Care Bulk Fluids Handler Name Role Phone Teddy Monzon MD Unavailable Unavailable Allergies and Adverse Reactions Reason for Visit Functional Status Medications Problems Social History
--- OUTSIDE RECORDS SUMMARY | 2025-04-06 00:50 | XMS_ITS | CCD ---
Author Name Interface, [id number] lity Address [address] [facility] [address] [address] Organization [facility] Address [address] [facility] [address] [place] [address] Care Team Providers Care Buffing Machine Operator Semiautomatic Name Role Phone Nicolás ECHAVARRIA, Teddy Blanca [...] Enoxaparin Subcutaneous daily inactiv e Fluticasone Nasal [place] 50 mcg/actuation HS active Cetirizine Oral @HS a ctive Problems Diagnosis Status Date of Diagnosis Resolution Date Participant in a clinical trial Active Primary malignant neoplasm o f colon (disorder) Active Multiple pulmonary nodules Active Fatty liver Active Social History Date Name Value 08/09/2023 Sex Female
== END 2025-04-05 07:38 | disposition home or self-care (01) ==
PROVIDERS: PCP Registered Nurse; Visit Provider Registered Nurse
DX: Z12.31 Encounter for screening mammogram for malignant neoplasm of breast (principal)
CPT/HCPCS: 77063; 77067

== ENCOUNTER 2025-05-04 16:15 | Outpatient (CLI) | payer OTHER, SELFPAY ==
--- NOTE | 2025-05-04 16:45 | CRLHL7_ITS ---
For Patients: As a result of the Century Cures Act, medical imaging exams and procedure reports are released immediately into your electronic medical record. You may view this report before your referring provider. If you have questions, please contact your health care provider. INDICATION: Colon cancer TECHNIQUE: CT chest, abdomen and pelvis acquired with 105 cc Isovue 370 intravenous contrast. COMPARISON: Chest, abdomen and pelvis CT 04/12/2023 FINDINGS: CHEST: Cardiovascular structures: Included portions of the great vessels are unremarkable. Thoracic aorta is normal in caliber. No pericardial effusion. Mediastinum and kristine: No mass or adenopathy. Lungs and pleura: No pleural effusion or pneumothorax. Mild peribronchovascular nodularity in the left lower lobe measuring up to 7 millimeters, similar to the prior exam. No new or enlarging pulmonary nodule. Chest wall and axilla: No mass or adenopathy. Bones: No suspicious bone lesions. Unremarkable for age. ABDOMEN AND PELVIS: Liver: Mildly decreased density of the liver diffusely without focal lesion. Gallbladder and bile ducts: Unremarkable. Pancreas: Unremarkable. Spleen: Unremarkable. Adrenal glands: Unremarkable. Kidneys: Symmetric renal enhancement with minimal nonspecific hypodensities within the left kidney measuring 5 millimeters or less which are indeterminate due to their small size although stable compared to the prior exam. GI tract: The stomach is unremarkable. No dilated loops of large or small intestine. Appendix unremarkable. Status post rectosigmoid resection. Vascular structures: Unremarkable. Lymph nodes: Unremarkable. Miscellaneous: Unremarkable. No free air or significant free fluid. Pelvic Organs: Anteverted uterus with intrauterine device. No adnexal masses. Bones: No suspicious bone lesions. Unremarkable for age. IMPRESSION: 1. Status post rectosigmoid resection consistent with the given history of colon cancer. 2. No evidence of metastatic disease within the chest, abdomen or pelvis. 3. Peribronchovascular nodularity, largest measuring 7 millimeters in left lower lobe. This is indeterminate although stable over the 25 month interval suggesting prior inflammatory disease. 4. Mild hepatic steatosis. Please note that all CT scans at this facility use dose modulation, iterative reconstruction, and/or weight-based dosing when appropriate to reduce radiation dose to as low as reasonably achievable. Dictated by Steffen Cartagena MD @ 05/06/2025 12:10:59 PM (Electronically Signed)
== END 2025-05-04 16:16 | disposition home or self-care (01) ==
LOC: CT 16:16
PROVIDERS: PCP Registered Nurse; Visit Provider Student in an Organized Health Care Education/Training Program
DX: C18.9 Malignant neoplasm of colon, unspecified (principal); R91.8 Other nonspecific abnormal finding of lung field; K76.0 Fatty (change of) liver, not elsewhere classified
CPT/HCPCS: 71260; 74177; Q9967